=== PATIENT | female | born 1970 | race Caucasian/White ===

== ENCOUNTER 2020-09-09 13:06 | Emergency (ER) | payer BC, OTHER ==
[2020-09-09] MEDS ORDERED: Sodium Chloride 0.9% 2.5 ML Syringe FLUSH PRN (13:19)
[2020-09-09] MEDS ORDERED: Metoclopramide 10 MG/2 ML SDV IVPUSH ONE (13:19)
[2020-09-09] MEDS ORDERED: Sodium Chloride 0.9% 10 ML Syringe FLUSH PRN (13:19)
[2020-09-09] MEDS ORDERED: diphenhydrAMINE 50 MG/ML SDV IVPUSH ONE (13:20)
[2020-09-09] MEDS ORDERED: Ketorolac 30 MG/ML SDV IVPUSH ONE (13:20)
--- NOTE | 2020-09-09 13:24 | EDM.PDOC ---
ED HPI GENERAL MEDICAL PROBLEM - General Chief Complaint: Headache Stated Complaint: MIGRANES Time Seen by Provider: 09/09/20 13:08 - History of Present Illness INITIAL COMMENTS - FREE TEXT/NARRATIVE: Patient is a 49-year-old female presenting with 6 days of right-sided headache associated with nausea vomiting and photophobia. Patient reports that earlier today she was seen at [facility] and given a shot of medication that helped only a tiny bit. She reports constant unrelenting symptoms for 6 days no fevers no chills no other neurologic symptoms. Patient has a history of similar migraines many years ago but has not had a headache in quite some time. She denies ever having any imaging done of her head. Patient also reports for the last few days of pain on the plantar aspect of her right foot when she steps down in the morning she denies fall or injury. This pain is minimal compared to her head pain. Headache Pain Score (Numeric/FACES): 10 - Related Data Allergies Allergy/AdvReac Type Severity Reaction Status Date / Time No Known Allergies Allergy Verified 09/09/20 13:30 Home Meds: Home Meds . 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 Skin: No rash. Eyes: No vision problems. ENT: No sore throat. Neck: No neck stiffness. Respiratory: No shortness of breath. Cardiac: No chest pain. Gastrointestinal: Per HPI Urinary: No dysuria. Musculoskeletal: Per HPI Neurologic: Per HPI ED EXAM, GENERAL - Physical Exam Exam: See Below Free Text/Narrative:: General Appearance: Tearful but nontoxic Skin: No rash HEENT: Normocephalic/atraumatic, sclera anicteric, mucous membranes moist Neck: Normal range of motion Chest and Lungs: Bilateral breath sounds, clear to auscultation Cardiovascular: Regular rate and rhythm, no murmur Abdomen: Soft, non-tender Back: Normal Musculoskeletal: 2+ bilateral DP pulses no focal bony tenderness in the right foot or ankle she does have tenderness over the insertion of the plantar aspect of the foot over the calcaneus and along the instep no swelling no erythema no palpable deformity Neurologic: Awake, alert, no obvious deficits, moving all extremities Psychiatric: Appropriate, cooperative Course - Vital Signs Last Recorded V/S: Last Vital Signs Temp 97.6 F 09/09/20 13:30 Pulse 67 09/09/20 14:59 Resp 16 09/09/20 14:59 BP 124/69 09/09/20 14:59 Pulse Ox 98 09/09/20 14:59 - Orders/Labs/Meds Orders: Active Orders 24 hr Category Date Time Status Sodium Chloride 0.9% [Saline Flush] Med 09/09/20 13:19 Active 10 ml FLUSH ASDIRECTED PRN Sodium Chloride 0.9% [Saline Flush] Med 09/09/20 13:19 Active 2.5 ml FLUSH ASDIRECTED PRN Saline Lock Insert [OM.PC] Stat Oth 09/09/20 13:19 Ordered Medication Orders Sodium Chloride (Saline Flush) 10 ml FLUSH ASDIRECTED PRN PRN Reason: Keep Vein Open Last Admin: 09/09/20 13:28 Dose: 10 ml Documented by: [id number] Sodium Chloride (Saline Flush) 2.5 ml FLUSH ASDIRECTED PRN PRN Reason: Keep Vein Open Last Admin: 09/09/20 13:28 Dose: 2.5 ml Documented by: [email or web address] Meds: Medications Generic Name Dose Route Start Last Admin Trade Name Freq PRN Reason Stop Dose Admin Sodium Chloride 10 ml 09/09/20 13:19 09/09/20 13:28 Saline Flush FLUSH 10 ml ASDIRECTED PRN Administration Keep Vein Open Sodium Chloride 2.5 ml 09/09/20 13:19 09/09/20 13:28 Saline Flush FLUSH 2.5 ml ASDIRECTED PRN Administration Keep Vein Open Discontinued Medications Generic Name Dose Route Start Last Admin Trade Name Freq PRN Reason Stop Dose Admin Dexamethasone 10 mg 09/09/20 14:04 09/09/20 14:56 Decadron IVPUSH 09/09/20 14:05 10 mg ONETIME ONE Administration Diphenhydramine HCl 25 mg 09/09/20 13:20 09/09/20 13:27 Benadryl IVPUSH 09/09/20 13:21 25 mg ONETIME ONE Administration Haloperidol Lactate 5 mg 09/09/20 14:04 09/09/20 14:56 Haldol IM 09/09/20 14:05 2.5 mg ONETIME ONE Administration Ketorolac Tromethamine 15 mg 09/09/20 13:20 09/09/20 14:56 Toradol IVPUSH 09/09/20 13:21 Not Given ONETIME ONE Metoclopramide HCl 10 mg 09/09/20 13:19 09/09/20 13:27 Reglan IVPUSH 09/09/20 13:20 10 mg ONETIME ONE Administration Morphine Sulfate 4 mg 09/09/20 14:04 09/09/20 14:56 Morphine IVPUSH 09/09/20 14:05 4 mg ONETIME ONE Administration Departure - Departure Time of Disposition: 15:23 Disposition: Home, Self-Care 01 Condition: Good Clinical Impression: Migraine - Discharge Information *PRESCRIPTION DRUG MONITORING PROGRAM REVIEWED*: Not Applicable *COPY OF PRESCRIPTION DRUG MONITORING REPORT IN PATIENT KILLIAN: Not Applicable Instructions: Migraine Headache, [id number] Forms: ED Department Discharge Additional Instructions: I encourage you to follow-up with your primary care provider if you do not have a primary care provider you can be seen at the [facility]. Your headache should continue to improve over the next few days. If your headache suddenly worsens or you develop any other new symptoms that concern you please call your doctor right away or return to the ER. The following information is given to patients seen in the emergency department who are being discharged to home. This information is to outline your options for follow-up care. We provide all patients seen in our emergency department with a follow-up referral. The need for follow-up, as well as the timing and circumstances, are variable depending upon the specifics of your emergency department visit. If you don't have a primary care physician on staff, we will provide you with a referral. We always advise you to contact your personal physician following an emergency department visit to inform them of the circumstance of the visit and for follow-up with them and/or the need for any referrals to a consulting specialist. The emergency department will also refer you to a specialist when appropriate. This referral assures that you have the opportunity for follow-up care with a specialist. All of these measure are taken in an effort to provide you with optimal care, which includes your follow-up. Under all circumstances we always encourage you to contact your private physician who remains a resource for coordinating your care. When calling for follow-up care, please make the office aware that this follow-up is from your recent emergency room visit. If for any reason you are refused follow-up, please contact the [facility] Emergency Department at and asked to speak to the emergency department charge nurse. Sepsis Event Note (ED) - Focused Exam Vital Signs: Vital Signs Temp Pulse Resp BP Pulse Ox 09/09/20 14:59 67 16 124/69 98 09/09/20 14:07 69 17 146/85 H 98 09/09/20 13:30 97.6 F 79 24 H 210/97 H 98 - My Orders Last 24 Hours: My Active Orders 09/09/20 13:19 Sodium Chloride 0.9% [Saline Flush] 10 ml FLUSH ASDIRECTED PRN Sodium Chloride 0.9% [Saline Flush] 2.5 ml FLUSH ASDIRECTED PRN Saline Lock Insert [OM.PC] Stat - Assessment/Plan Last 24 Hours: My Active Orders 09/09/20 13:19 Sodium Chloride 0.9% [Saline Flush] 10 ml FLUSH ASDIRECTED PRN Sodium Chloride 0.9% [Saline Flush] 2.5 ml FLUSH ASDIRECTED PRN Saline Lock Insert [OM.PC] Stat Assessment:: 49-year-old female presenting with signs and symptoms most consistent with migraine headache. Given patient's lack of prior imaging CT scan of the brain is been ordered. No concern for meningitis or encephalitis given lack of fever neck stiffness and 6 days of symptoms. Headache is not thunderclap low concern for subarachnoid hemorrhage at this point. Reglan Benadryl ordered can add Toradol and CT negative. Regarding her right foot pain the exam and history particularly affected is worse in the morning when she steps is most consistent with plantar fasciitis. Anti-inflammatory should be adequate for this. We will have additional discussions after patient's headache has been addressed. 1415: Pt's CT is normal. Pt appears more comfortable but states that sx are unchanged. Will add morphine, haldol and decadron. 1520: Patient symptoms markedly improved with second round of medication patient comfortable going home return precaution discussed and understood.
--- NOTE | 2020-09-09 13:56 | CT ---
INDICATION: Right-sided headache for 6 days TECHNIQUE: Non-contrast CT of the head is submitted. No comparisons. FINDINGS: The ventricles, sulci and gyri are of normal size, shape and contour. Midline structures are centrally located. No convincing evidence of intra- or extra-axial fluid collections. IMPRESSION: 1. No radiographic evidence of acute intracranial abnormalities. Please note that all CT scans at this facility use dose modulation, iterative reconstruction, and/or weight-based dosing when appropriate to reduce radiation dose to as low as reasonably achievable. Dictated by Josh Moreno MD @ Sep 09 2020 1:55PM Signed by Dr. Josh Moreno @ Sep 09 2020 1:55PM
[2020-09-09] MEDS ORDERED: Haloperidol Lactate 5 MG/ML SDV IM ONE (14:04)
[2020-09-09] MEDS ORDERED: Dexamethasone 10 MG/ML SDV IVPUSH ONE (14:04)
[2020-09-09] MEDS ORDERED: Morphine 4 MG/ML Syringe IVPUSH ONE (14:04)
[2020-09-09 15:39] VITALS: BP 114/62; PULSE 86
== END 2020-09-09 15:39 | disposition home or self-care (01) ==
LOC: MW.ED 13:06
DX: G43.909 Migraine, unspecified, not intractable, without status migrainosus (principal); E66.9 Obesity, unspecified; Z68.42 Body mass index [BMI] 45.0-49.9, adult
CPT/HCPCS: 70450; 96374; 96375; 99283; J1100; J1200; J1630; J2270; J2765

== ENCOUNTER 2021-05-03 01:03 | Inpatient (IN) | payer OTHER ==
--- NOTE | 2021-05-03 01:20 | EDM.PDOC ---
ED HPI GENERAL MEDICAL PROBLEM - General Chief Complaint: Respiratory Problem Stated Complaint: COVID POSITIVE, SHORTNESS OF BREATH Time Seen by Provider: 05/03/21 01:04 - History of Present Illness INITIAL COMMENTS - FREE TEXT/NARRATIVE: History of present illness: [] This 50-year-old female has been having cough headache back pain muscle aches and fatigue since 6 days ago. On 29 April 2021 she tested positive for COVID-19. She is gradually gotten worse. She has no history of asthma or lung disease. She is not diabetic. Her symptoms are moderately severe today and associated with low blood oxygen. On home pulse oximetry she measures 79. Review of systems: As per history of present illness and below otherwise all systems reviewed and negative. Past medical history: As per history of present illness and as reviewed below otherwise noncontributory. Surgical history: As per history of present illness and as reviewed below otherwise noncontributory. Social history: No reported history of drug or alcohol abuse. Family history: As per history of present illness and as reviewed below otherwise noncontributory. Physical exam: Constitutional - well developed, well-nourished and in no acute distress HEENT - normocephalic, no evidence of trauma - external nose and mouth normal - no mass in neck and no JVD - mucosae moist EYES - full EOM, PERRL, no icterus - no evidence of inflammation, injection, or drainage Respiratory -mild respiratory distress, equal bilateral expansion, lungs markedly diminished lung sounds with prolonged expiratory phase of respiration. Cardiovascular - Regular Rhythm with S1 and S2 appreciated and no murmur, gallop or rub. GI - abdomen soft without distension or organomegaly - normal bowel sounds - no guard or rebound Musculoskeletal no gross deformity of long bones or joints - no tenderness, swelling or edema Neurologic - Alert and oriented times four - CN II-XII grossly intact - motor sensory and coordination symmetrically normal Psychiatric - appropriate mood and affect with normal thought content Hematologic - No petechiae or purpura - mucosa appropriate color and sclera not pale - normal nail bed color and refill Integument - no rash or evidence of trauma - normal turgor Diagnostics: [] Therapeutics: [] Impression: [] Plan: [] Definitive disposition and diagnosis as appropriate pending reevaluation and review of above. Bilateral Chest Pain Score (Numeric/FACES): 7 - Related Data Allergies Allergy/AdvReac Type Severity Reaction Status Date / Time No Known Allergies Allergy Verified 09/09/20 13:30 Home Meds: Home Meds . 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 ED EXAM, GENERAL - Physical Exam Exam: See Below Free Text/Narrative:: My physical exam is in the HPI #1 Interpretation EKG Interpretation Comments: EKG-date 05/03/2021-time 09 28-rhythm sinus-rate 79-PA 141-QT duration 432-[place] XVII-QRS late transition R wave in the precordium-ST and T normal-essentially normal EKG-no prior for comparison Course - Vital Signs Text/Narrative:: Patient is not in severe respiratory distress but much more comfortable and sats above 90 when she is on 2 L of nasal oxygen. Infiltrates quite diffuse and impressive on the chest x-ray. Discussed with Dr. Mukherjee and admitted for further care. Last Recorded V/S: Last Vital Signs Temp 36.4 C 05/03/21 01:19 Pulse 82 05/03/21 01:19 Resp 22 H 05/03/21 01:19 BP 113/72 05/03/21 01:19 Pulse Ox 89 L 05/03/21 01:19 - Orders/Labs/Meds Orders: Active Orders 24 hr Category Date Time Status Admission Status [Patient Status] [ADT] Stat ADT 05/03/21 02:27 Ordered RT Post Treatment Assessment [RC] Click to Edit Care 05/03/21 01:37 Active RT Pre-Treatment Assessment [RC] Click to Edit Care 05/03/21 01:37 Active BILIRUBIN DIRECT [CHEM] Stat Lab 05/03/21 02:26 Ordered UA W/MARCOS RFLX IF INDICATED [URIN] Stat Lab 05/03/21 01:36 Ordered Ibuprofen [Motrin] Med 05/03/21 02:28 Once 400 mg PO ONETIME ONE Remdesivir 200 mg Med 05/03/21 02:26 Ordered Sodium Chloride 0.9% [Normal Saline] 250 ml IV ONETIME Sodium Chloride 0.9% [Saline Flush] Med 05/03/21 01:36 Active 10 ml FLUSH ASDIRECTED PRN Sodium Chloride 0.9% [Saline Flush] Med 05/03/21 01:36 Active 2.5 ml FLUSH ASDIRECTED PRN dexAMETHasone [Decadron] Med 05/03/21 02:27 Once 10 mg IVPUSH ONETIME ONE Saline Lock Insert [OM.PC] Stat Oth 05/03/21 01:36 Ordered Medication Orders Dexamethasone (Dexamethasone 10 Mg/Ml Sdv) 10 mg IVPUSH ONETIME ONE Stop: 05/03/21 02:28 Remdesivir 200 mg/ Sodium (Chloride) 250 mls @ 250 mls/hr IV ONETIME ONE Stop: 05/03/21 02:27 Sodium Chloride (Sodium Chloride 0.9% 10 Ml Syringe) 10 ml FLUSH ASDIRECTED PRN PRN Reason: Keep Vein Open Last Admin: 05/03/21 02:12 Dose: 10 ml Documented by: SACHIN Sodium Chloride (Sodium Chloride 0.9% 2.5 Ml Syringe) 2.5 ml FLUSH ASDIRECTED PRN PRN Reason: Keep Vein Open Last Admin: 05/03/21 02:12 Dose: 2.5 ml Documented by: SACHIN Labs: Laboratory Tests 05/03/21 05/03/21 Range/Units 01:45 01:45 WBC 3.93 L (4.0-11.0) K/uL RBC 4.93 (4.30-5.90) M/uL Hgb 15.0 (12.0-16.0) g/dL Hct 42.7 (36.0-46.0) % MCV 86.6 (80.0-98.0) fL MCH 30.4 (27.0-32.0) pg MCHC 35.1 (31.0-37.0) g/dL RDW Std Deviation 44.4 (28.0-62.0) fl RDW Coeff of Yaneth 14 (11.0-15.0) % Plt Count 147 L (150-400) K/uL MPV 11.10 (7.40-12.00) fL Neut % (Auto) 55.9 (48.0-80.0) % Lymph % (Auto) 34.6 (16.0-40.0) % O'Brien % (Auto) 9.2 (0.0-15.0) % Eos % (Auto) 0.0 (0.0-7.0) % Baso % (Auto) 0.3 (0.0-1.5) % Neut # (Auto) 2.2 (1.4-5.7) K/uL Lymph # (Auto) 1.4 (0.6-2.4) K/uL O'Brien # (Auto) 0.4 (0.0-0.8) K/uL Eos # (Auto) 0.0 (0.0-0.7) K/uL Baso # (Auto) 0.0 (0.0-0.1) K/uL Nucleated RBC % 0.0 /100WBC Nucleated RBCs # 0 K/uL Sodium 137 (136-145) mmol/L Potassium 4.0 (3.5-5.1) mmol/L Chloride 102 (98-107) mmol/L Carbon Dioxide 25.9 (21.0-32.0) mmol/L BUN 13 (7.0-18.0) mg/dL Creatinine 0.9 (0.6-1.0) mg/dL Est Cr Clr Drug Dosing 63.14 mL/min Estimated GFR (MDRD) > 60.0 ml/min Glucose 118 H (74-106) mg/dL Calcium 8.5 (8.5-10.1) mg/dL Total Bilirubin 0.3 (0.2-1.0) mg/dL AST 40 H (15-37) IU/L ALT 31 (14-63) IU/L Alkaline Phosphatase 145 H (46-116) U/L Troponin I < 0.050 (0.000-0.056) ng/mL Total Protein 7.1 (6.4-8.2) g/dL Albumin 3.1 L (3.4-5.0) g/dL Globulin 4.0 (2.6-4.0) g/dL Albumin/Globulin Ratio 0.8 L (0.9-1.6) Meds: Medications Generic Name Dose Route Start Last Admin Trade Name Freq PRN Reason Stop Dose Admin Dexamethasone 10 mg 05/03/21 02:27 Dexamethasone 10 Mg/Ml Sdv IVPUSH 05/03/21 02:28 ONETIME ONE Remdesivir 200 mg/ Sodium 250 mls @ 250 mls/hr 05/03/21 02:26 Chloride IV 05/03/21 02:27 ONETIME ONE Sodium Chloride 10 ml 05/03/21 01:36 05/03/21 02:12 Sodium Chloride 0.9% 10 Ml Syringe FLUSH 10 ml ASDIRECTED PRN Administration Keep Vein Open Sodium Chloride 2.5 ml 05/03/21 01:36 05/03/21 02:12 Sodium Chloride 0.9% 2.5 Ml Syringe FLUSH 2.5 ml ASDIRECTED PRN Administration Keep Vein Open Discontinued Medications Generic Name Dose Route Start Last Admin Trade Name Freq PRN Reason Stop Dose Admin Albuterol 8 gm 05/03/21 01:37 05/03/21 02:06 Albuterol 8 Gm Inhaler INH 05/03/21 01:38 90 mcg ONETIME STA Administration Benzonatate 200 mg 05/03/21 01:37 05/03/21 02:11 Benzonatate 100 Mg Cap PO 05/03/21 01:38 200 mg ONETIME ONE Administration Departure - Departure Time of Disposition: 02:29 Disposition: Admitted As Inpatient 64 Condition: Good Clinical Impression: Pneumonia due to COVID-19 virus, Hypoxia - Discharge Information Referrals: PCP,None [Primary Care Provider] - Forms: ED Department Discharge Sepsis Event Note (ED) - Focused Exam Vital Signs: Vital Signs Temp Pulse Resp BP Pulse Ox 05/03/21 01:19 36.4 C 82 22 H 113/72 89 L - My Orders Last 24 Hours: My Active Orders 05/03/21 01:36 UA W/MARCOS RFLX IF INDICATED [URIN] Stat Sodium Chloride 0.9% [Saline Flush] 10 ml FLUSH ASDIRECTED PRN Sodium Chloride 0.9% [Saline Flush] 2.5 ml FLUSH ASDIRECTED PRN Saline Lock Insert [OM.PC] Stat 05/03/21 01:37 RT Post Treatment Assessment [RC] Click to Edit RT Pre-Treatment Assessment [RC] Click to Edit 05/03/21 02:26 BILIRUBIN DIRECT [CHEM] Stat Remdesivir 200 mg Sodium Chloride 0.9% [Normal Saline] 250 ml IV ONETIME 05/03/21 02:27 Admission Status [Patient Status] [ADT] Stat dexAMETHasone [Decadron] 10 mg IVPUSH ONETIME ONE 05/03/21 02:28 Ibuprofen [Motrin] 400 mg PO ONETIME ONE - Assessment/Plan Last 24 Hours: My Active Orders 05/03/21 01:36 UA W/MARCOS RFLX IF INDICATED [URIN] Stat Sodium Chloride 0.9% [Saline Flush] 10 ml FLUSH ASDIRECTED PRN Sodium Chloride 0.9% [Saline Flush] 2.5 ml FLUSH ASDIRECTED PRN Saline Lock Insert [OM.PC] Stat 05/03/21 01:37 RT Post Treatment Assessment [RC] Click to Edit RT Pre-Treatment Assessment [RC] Click to Edit 05/03/21 02:26 BILIRUBIN DIRECT [CHEM] Stat Remdesivir 200 mg Sodium Chloride 0.9% [Normal Saline] 250 ml IV ONETIME 05/03/21 02:27 Admission Status [Patient Status] [ADT] Stat dexAMETHasone [Decadron] 10 mg IVPUSH ONETIME ONE 05/03/21 02:28 Ibuprofen [Motrin] 400 mg PO ONETIME ONE
[2021-05-03] MEDS ORDERED: Sodium Chloride 0.9% 10 ML Syringe FLUSH PRN (01:36)
[2021-05-03] MEDS ORDERED: Sodium Chloride 0.9% 2.5 ML Syringe FLUSH PRN ×2 (01:36→08:22)
[2021-05-03] MEDS ORDERED: Albuterol 8 GM Inhaler INH STA (01:37)
[2021-05-03] MEDS ORDERED: Benzonatate 100 MG Cap PO ONE (01:37)
--- NOTE | 2021-05-03 02:07 | CR ---
INDICATION: Cough, shortness of breath TECHNIQUE: Chest 1 view. COMPARISON: None FINDINGS: The heart is normal in size. There are patchy bilateral airspace opacities. Negative for pneumothorax. The bones are unremarkable. IMPRESSION: Patchy bilateral airspace opacities, findings which could be seen with COVID-19 pneumonia, multifocal pneumonia or pulmonary edema. Dictated by Ghazal Nelson MD @ 05/03/2021 2:06:[address] Ghazal Nelson @ May 03 2021 2:06AM
[2021-05-03 02:19] LABS: BLOOD UREA NITROGEN,BUN 13 mg/dL (7.0-18.0); CARBON DIOXIDE,CO2 25.9 mmol/L (21.0-32.0); CHLORIDE,CL 102 mmol/L (98-107); GLUCOSE RANDOM 118 mg/dL (74-106); SODIUM,NA 137 mmol/L (136-145)
[2021-05-03] MEDS ORDERED: REMDESIVIR 200 MG in Sodium Chloride 0.9% 250 ML IV ONE (02:26)
[2021-05-03] MEDS ORDERED: Dexamethasone 10 MG/ML SDV IVPUSH ONE (02:27)
[2021-05-03] MEDS ORDERED: Ibuprofen 400 MG Tab PO ONE (02:28)
[2021-05-03] MEDS: Acetaminophen 325 MG Tab PO PRN (06:43)
[2021-05-03 06:57] LABS: BLOOD UREA NITROGEN,BUN 10 mg/dL (7.0-18.0); CARBON DIOXIDE,CO2 25.7 mmol/L (21.0-32.0); CHLORIDE,CL 103 mmol/L (98-107); GLUCOSE RANDOM 133 mg/dL (74-106); POTASSIUM,K 4.9 mmol/L (3.5-5.1); SODIUM,NA 137 mmol/L (136-145)
--- NOTE | 2021-05-03 08:19 | PCM.HP.2 ---
H&P History of Present Illness - General Date of Service: 05/03/21 Admit Problem/Dx: Admission Diagnosis/Problem Admission Diagnosis/Problem Pneumonia Source of Information: Patient History Limitations: Reports: No Limitations - History of Present Illness Initial Comments - Free Text/Narative: This 50-year-old female with past medical history of obesity and migraine presented to the ER last night with cough, headache, back pain and muscle aches. She reports these have been going on for approximately 6 days. On 04/29/2021 patient was tested positive for COVID-19. She reports over this last few days she is continuously gradually gotten worse she reports she is feeling quite ill yesterday which prompted her to come to the ER along with low oxygen level noted at home. Home pulse oximetry she reported to 79% on room air. She denies any chest pain but reports shortness of breath especially with ambulation. Reports generalized malaise and body aches. She reports mild dry scratchy throat she reports mild sinus congestion and all over headache, with no blurred vision or double vision. No neck pain. She denies any abdominal pain but does report mild diarrhea. Reports decreased appetite and oral intake. She denies having Covid vaccination. Reports she was recently at the [place] [employer] [facility] which she feels like this is where she contracted COVID-19. She denies any regular tobacco use but smokes cigarettes socially 1 or 2 every couple months. Reports social alcohol use and no recreational drug use. In the ER mild leukopenia noted 3.93. Hemoglobin 15.0 hematocrit 42.7 platelet count 147,000. BMP otherwise normal limits. Glucose 118 mildly elevated. AST 40 ALT 31 alk phos 145. Troponin negative. UA negative. Chest x-ray in the ER revealed patchy bilateral airspace opacities multifocal pneumonia or pulmonary edema or COVID-19 pneumonia. In the ER she was noted to be hypoxic on room air with mild tachypnea. Afebrile heart rate 82 blood pressure 113/72. She was placed on 2 L of oxygen and oxygen increased to 94%. In the ER she was treated with 200 mg of remdesivir ibuprofen 10 mg IV dexamethasone along with Tessalon Perles and albuterol inhaler. She will be admitted inpatient for acute hypoxic respiratory failure and COVID-19 pneumonia. Bilateral Chest Pain Score (Numeric/FACES): 7 Back Pain Score (Numeric/FACES): 4 - Related Data Allergies/Adverse Reactions: Allergies Allergy/AdvReac Type Severity Reaction Status Date / Time No Known Allergies Allergy Verified 05/03/21 03:32 Home Medications: Home Meds . [No Known Home Meds] 09/26/16 [History] Past Medical History HEENT History: Reports: None Cardiovascular History: Reports: None. Denies: Afib, Blood Clots/VTE/DVT, CAD, High Cholesterol, Hypertension Respiratory History: Reports: None. Denies: Asthma, COPD, SOB Gastrointestinal History: Reports: None. Denies: GERD, GI Bleed, Irritable Bowel Syndrome Genitourinary History: Reports: None. Denies: Acute Renal Failure [employer] History: Reports: Neurological History: Reports: Migraines Endocrine/Metabolic History: Reports: Obesity/BMI 30+. Denies: Diabetes, Type II Immunologic History: Reports: None - Infectious Disease History Infectious Disease History: Reports: None - Past Surgical History Head Surgeries/Procedures: Reports: None HEENT Surgical History: Reports: Oral Surgery Female Surgical History: Reports: Breast Biopsy Social & Family History - Family History Family Medical History: No Pertinent Family History - Tobacco Use Tobacco Use Status *Q: Light Tobacco User (Uses only socially) Second Hand Smoke Exposure: No - Caffeine Use Caffeine Use: Reports: None - Alcohol Use Alcohol Use Frequency: Rarely, Socially - Recreational Drug Use Recreational Drug Use: No H&P Review of Systems - Review of Systems: Review Of Systems: See Below General: Reports: Fever, Chills, Malaise, Fatigue HEENT: Reports: Headaches, Sinus Congestion, Sore Throat Pulmonary: Reports: Shortness of Breath, Cough. Denies: Sputum, Hemoptysis Cardiovascular: Reports: Dyspnea on Exertion. Denies: Lightheadedness Gastrointestinal: Reports: No Symptoms, Diarrhea. Denies: Abdominal Pain, Black Stool, Bloody Stool, Nausea, Vomiting Genitourinary: Reports: No Symptoms. Denies: Dysuria, Frequency, Burning Musculoskeletal: Reports: No Symptoms Skin: Reports: No Symptoms Psychiatric: Reports: No Symptoms Neurological: Reports: No Symptoms Hematologic/Lymphatic: Reports: No Symptoms Immunologic: Reports: No Symptoms Exam - Exam Exam: See Below - Vital Signs Vital Signs: Last Vital Signs Temp 98.2 F 05/03/21 03:41 Pulse 80 05/03/21 03:41 Resp 22 H 05/03/21 03:41 BP 114/70 05/03/21 03:41 Pulse Ox 94 L 05/03/21 03:41 Weight: 93.395 kg - Exam Quality Assessment: Supplemental Oxygen, DVT Prophylaxis General: Alert, Oriented, Cooperative HEENT: Conjunctiva Clear, Posterior Pharynx Clear. No: Mucosa Moist & [place] (Dry) Lungs: Decreased Breath Sounds, Crackles (Fine bibasilar crackles). No: Normal Respiratory Effort (Mild dyspnea noted with speech) Cardiovascular: Regular Rate, Regular Rhythm, Normal S1, Normal S2. No: Irregular Rhythm, Systolic Murmur GI/Abdominal Exam: Normal Bowel Sounds, Soft, Non-Tender Back Exam: Normal Inspection, Full Range of Motion Extremities: Normal Inspection, Normal Range of Motion, Non-Tender, No Pedal Edema Skin: Warm, Dry, Intact Neuro Extensive - Mental Status: Alert, Oriented x3, Normal Mood/Affect Psychiatric: Alert, Normal Affect, Normal Mood - Patient Data Lab Results Last 24 hrs: Laboratory Results - last 24 hr 05/03/21 05/03/21 05/03/21 Range/Units 01:45 01:45 01:45 WBC 3.93 L (4.0-11.0) K/uL RBC 4.93 (4.30-5.90) M/uL Hgb 15.0 (12.0-16.0) g/dL Hct 42.7 (36.0-46.0) % MCV 86.6 (80.0-98.0) fL MCH 30.4 (27.0-32.0) pg MCHC 35.1 (31.0-37.0) g/dL RDW Std Deviation 44.4 (28.0-62.0) fl RDW Coeff of Yaneth 14 (11.0-15.0) % Plt Count 147 L (150-400) K/uL MPV 11.10 (7.40-12.00) fL Neut % (Auto) 55.9 (48.0-80.0) % Lymph % (Auto) 34.6 (16.0-40.0) % [place] % (Auto) 9.2 (0.0-15.0) % Eos % (Auto) 0.0 (0.0-7.0) % Baso % (Auto) 0.3 (0.0-1.5) % Neut # (Auto) 2.2 (1.4-5.7) K/uL Lymph # (Auto) 1.4 (0.6-2.4) K/uL [place] # (Auto) 0.4 (0.0-0.8) K/uL Eos # (Auto) 0.0 (0.0-0.7) K/uL Baso # (Auto) 0.0 (0.0-0.1) K/uL Nucleated RBC % 0.0 /100WBC Nucleated RBCs # 0 K/uL Sodium 137 (136-145) mmol/L Potassium 4.0 (3.5-5.1) mmol/L Chloride 102 (98-107) mmol/L Carbon Dioxide 25.9 (21.0-32.0) mmol/L BUN 13 (7.0-18.0) mg/dL Creatinine 0.9 (0.6-1.0) mg/dL Est Cr Clr Drug Dosing 63.14 mL/min Estimated GFR (MDRD) > 60.0 ml/min Glucose 118 H (74-106) mg/dL Calcium 8.5 (8.5-10.1) mg/dL Total Bilirubin 0.3 (0.2-1.0) mg/dL Direct Bilirubin 0.10 (0.0-0.5) mg/dL AST 40 H (15-37) IU/L ALT 31 (14-63) IU/L Alkaline Phosphatase 145 H (46-116) U/L Troponin I < 0.050 (0.000-0.056) ng/mL Total Protein 7.1 (6.4-8.2) g/dL Albumin 3.1 L (3.4-5.0) g/dL Globulin 4.0 (2.6-4.0) g/dL Albumin/Globulin Ratio 0.8 L (0.9-1.6) Urine Color Urine Appearance Urine pH (5.0-8.0) Ur Specific [place] (1.001-1.035) Urine Protein (NEGATIVE) mg/dL Urine Glucose (UA) (NEGATIVE) mg/dL Urine Ketones (NEGATIVE) mg/dL Urine Occult Blood (NEGATIVE) Urine Nitrite (NEGATIVE) Urine Bilirubin (NEGATIVE) Urine Urobilinogen (<2.0) EU/dL Ur Leukocyte Esterase (NEGATIVE) 08/25/21 08/25/21 08/25/21 Range/Units 05:25 05:25 06:40 WBC 4.94 (4.0-11.0) K/uL RBC 4.98 (4.30-5.90) M/uL Hgb 14.7 (12.0-16.0) g/dL Hct 43.4 (36.0-46.0) % MCV 87.1 (80.0-98.0) fL MCH 29.5 (27.0-32.0) pg MCHC 33.9 (31.0-37.0) g/dL RDW Std Deviation 46.1 (28.0-62.0) fl RDW Coeff of Yaneth 14 (11.0-15.0) % Plt Count 141 L (150-400) K/uL MPV 11.60 (7.40-12.00) fL Neut % (Auto) 76.7 (48.0-80.0) % Lymph % (Auto) 18.2 (16.0-40.0) % [place] % (Auto) 4.9 (0.0-15.0) % Eos % (Auto) 0.0 (0.0-7.0) % Baso % (Auto) 0.2 (0.0-1.5) % Neut # (Auto) 3.8 (1.4-5.7) K/uL Lymph # (Auto) 0.9 (0.6-2.4) K/uL [place] # (Auto) 0.2 (0.0-0.8) K/uL Eos # (Auto) 0.0 (0.0-0.7) K/uL Baso # (Auto) 0.0 (0.0-0.1) K/uL Nucleated RBC % 0.0 /100WBC Nucleated RBCs # 0 K/uL Sodium 137 (136-145) mmol/L Potassium 4.9 (3.5-5.1) mmol/L Chloride 103 (98-107) mmol/L Carbon Dioxide 25.7 (21.0-32.0) mmol/L BUN 10 (7.0-18.0) mg/dL Creatinine 0.9 (0.6-1.0) mg/dL Est Cr Clr Drug Dosing 63.14 mL/min Estimated GFR (MDRD) > 60.0 ml/min Glucose 133 H (74-106) mg/dL Calcium 8.1 L (8.5-10.1) mg/dL Total Bilirubin 0.3 (0.2-1.0) mg/dL Direct Bilirubin (0.0-0.5) mg/dL AST 43 H (15-37) IU/L ALT 36 (14-63) IU/L Alkaline Phosphatase 147 H (46-116) U/L Troponin I (0.000-0.056) ng/mL Total Protein 6.9 (6.4-8.2) g/dL Albumin 3.1 L (3.4-5.0) g/dL Globulin 3.8 (2.6-4.0) g/dL Albumin/Globulin Ratio 0.8 L (0.9-1.6) Urine Color YELLOW Urine Appearance CLEAR Urine pH 6.0 (5.0-8.0) Ur Specific [place] 1.010 (1.001-1.035) Urine Protein NEGATIVE (NEGATIVE) mg/dL Urine Glucose (UA) NEGATIVE (NEGATIVE) mg/dL Urine Ketones TRACE H (NEGATIVE) mg/dL Urine Occult Blood NEGATIVE (NEGATIVE) Urine Nitrite NEGATIVE (NEGATIVE) Urine Bilirubin NEGATIVE (NEGATIVE) Urine Urobilinogen 0.2 (<2.0) EU/dL Ur Leukocyte Esterase NEGATIVE (NEGATIVE) Result Diagrams: 05/03/21 05:25 05/03/21 05:25 Sepsis Event Note - Evaluation Sepsis Screening Result: Possible Sepsis Risk - Focused Exam Vital Signs: Vital Signs Temp Pulse Resp BP Pulse Ox 05/03/21 03:41 98.2 F 80 22 H 114/70 94 L 05/03/21 03:02 92 20 108/66 91 L 05/03/21 01:19 97.6 F 82 22 H 113/72 89 L - Problem List (1) Acute respiratory failure with hypoxia SNOMED Code(s): 06225001, 476680196 ICD Code: J96.01 - ACUTE RESPIRATORY FAILURE WITH HYPOXIA Status: Acute Current Visit: Yes (2) COVID-19 SNOMED Code(s): 980710812 ICD Code: U07.1 - COVID-19 Status: Acute Current Visit: Yes (3) Viral pneumonia SNOMED Code(s): 99890560 ICD Code: J12.9 - VIRAL PNEUMONIA, UNSPECIFIED Status: Acute Current Visit: Yes (4) Obesity SNOMED Code(s): 041167934, 068591460 ICD Code: E66.9 - OBESITY, UNSPECIFIED Status: Chronic Current Visit: Yes (5) Migraine SNOMED Code(s): 83227808 ICD Code: G43.909 - MIGRAINE, UNSP, NOT INTRACTABLE, WITHOUT STATUS MIGRAINOSUS Status: Chronic Current Visit: No Problem List Initiated/Reviewed/Updated: Yes Orders Last 24hrs: Active Orders 24 hr Category Date Time Status Admission Status [Patient Status] [ADT] Stat ADT 05/03/21 02:27 Active RT Post Treatment Assessment [RC] Click to Edit Care 05/03/21 01:37 Active RT Pre-Treatment Assessment [RC] Click to Edit Care 05/03/21 01:37 Active Regular Diet [DIET] Diet 05/03/21 Breakfast Active Acetaminophen [TylenoL] Med 05/03/21 04:37 Active 650 mg PO Q6H PRN Benzonatate [Tessalon Perles] Med 05/03/21 04:37 Active 100 mg PO Q6H PRN Remdesivir 100 mg Med 05/04/21 03:00 Active Sodium Chloride 0.9% [Normal Saline] 100 ml IV Q24H Sodium Chloride 0.9% [Saline Flush] Med 05/03/21 01:36 Active 10 ml FLUSH ASDIRECTED PRN Sodium Chloride 0.9% [Saline Flush] Med 05/03/21 01:36 Active 2.5 ml FLUSH ASDIRECTED PRN dexAMETHasone Med 05/03/21 23:00 Active 6 mg PO Q24H Saline Lock Insert [OM.PC] Stat Oth 05/03/21 01:36 Ordered Medication Orders Acetaminophen (Acetaminophen 325 Mg Tab) 650 mg PO Q6H PRN PRN Reason: Pain/Fever Last Admin: 05/03/21 06:43 Dose: 650 mg Documented by: SEMICHR Benzonatate (Benzonatate 100 Mg Cap) 100 mg PO Q6H PRN PRN Reason: Cough Dexamethasone (Dexamethasone 4 Mg Tab) 6 mg PO Q24H JAYY Remdesivir 100 mg/ Sodium (Chloride) 100 mls @ 100 mls/hr IV Q24H JAYY Stop: 05/07/21 03:59 Sodium Chloride (Sodium Chloride 0.9% 10 Ml Syringe) 10 ml FLUSH ASDIRECTED PRN PRN Reason: Keep Vein Open Last Admin: 05/03/21 02:12 Dose: 10 ml Documented by: SACHIN Sodium Chloride (Sodium Chloride 0.9% 2.5 Ml Syringe) 2.5 ml FLUSH ASDIRECTED PRN PRN Reason: Keep Vein Open Last Admin: 05/03/21 02:12 Dose: 2.5 ml Documented by: SACHIN Assessment/Plan Comment:: This 50-year-old female admitted with acute hypoxic respiratory failure COVID- 19, viral pneumonia 1. Acute hypoxic respiratory failure, COVID-19 and viral pneumonia -Continue remdesivir 100 mg IV daily x4 days -Continue dexamethasone 6 mg p.o. daily until discharge or 10 days -Combivent inhaler every 4 hours -Tessalon Perles or Robitussin with codeine for cough as needed -Encourage I-S, Acapella and proning -Lovenox for DVT prophylaxis -Oxygen to keep sats greater 92% wean as possible -Monitor LFTs while on intensive care therapy VTE prophylaxis: Lovenox GI prophylaxis: Protonix while on high-dose steroids CODE STATUS: Dispo 2 to 3 days pending improvement. - Mortality Measure Prognosis:: Good
[2021-05-03] MEDS ORDERED: Ondansetron 4 MG/2 ML SDV IVPUSH PRN (08:22)
[2021-05-03] MEDS ORDERED: Pantoprazole 40 MG in Sodium Chloride 0.9% 10 ML IV ONE (08:22)
[2021-05-03] MEDS: Albuterol/Ipratropium 4 GM Inhalation Spray INH SCH ×4 (09:36→23:07)
[2021-05-03] MEDS: Codeine/guaiFENesin 10-100 MG/5 ML Syrup 5 ML Cup PO PRN ×2 (12:40→23:09)
[2021-05-03] MEDS: Ibuprofen 400 MG Tab PO PRN ×2 (12:40→18:53)
[2021-05-03] MEDS: Enoxaparin 40 MG/0.4 ML Syringe SUBCUT SCH (12:41)
[2021-05-03] MEDS: Benzonatate 100 MG Cap PO PRN (16:28)
[2021-05-03] MEDS: Dexamethasone 4 MG Tab PO SCH (23:08)
[2021-05-04] MEDS: Acetaminophen 325 MG Tab PO PRN ×2 (01:31→22:00)
[2021-05-04] MEDS: Benzonatate 100 MG Cap PO PRN (01:31)
[2021-05-04] MEDS: REMDESIVIR 100 MG in Sodium Chloride 0.9% 100 ML IV SCH (02:04)
[2021-05-04] MEDS: Albuterol/Ipratropium 4 GM Inhalation Spray INH SCH ×6 (02:07→21:59)
[2021-05-04] MEDS: Pantoprazole 40 MG Tab.CR PO SCH (06:57)
[2021-05-04 07:06] LABS: BLOOD UREA NITROGEN,BUN 16 mg/dL (7.0-18.0); CARBON DIOXIDE,CO2 23.8 mmol/L (21.0-32.0); CHLORIDE,CL 102 mmol/L (98-107); GLUCOSE RANDOM 168 mg/dL (74-106); POTASSIUM,K 4.2 mmol/L (3.5-5.1); SODIUM,NA 136 mmol/L (136-145)
--- NOTE | 2021-05-04 08:01 | PCM.PN ---
- General Info Date of Service: 05/04/21 Admission Dx/Problem (Free Text): Admission Diagnosis/Problem Admission Diagnosis/Problem Pneumonia Subjective Update: Feeling improved this morning. Reports had significant anxiety and shortness of breath over night. She was found to hypoxic and needs increased she is currently on high flow nasal cannula. Denies any chest pain but does report continued shortness of Functional Status: Reports: Pain Controlled, Tolerating Diet, Ambulating, Urinating - Review of Systems General: Reports: Weakness, Fatigue, Malaise HEENT: Reports: Headaches, Sinus Congestion, Sore Throat Pulmonary: Reports: Shortness of Breath, Cough, Sputum Cardiovascular: Reports: Dyspnea on Exertion. Denies: Chest Pain Gastrointestinal: Reports: Decreased Appetite. Denies: Abdominal Pain, Nausea, Vomiting Genitourinary: Reports: No Symptoms. Denies: Dysuria, Frequency, Burning Musculoskeletal: Reports: No Symptoms Skin: Reports: No Symptoms Neurological: Reports: No Symptoms Psychiatric: Reports: No Symptoms - Patient Data Vitals - Most Recent: Last Vital Signs Temp 97.0 F 05/04/21 03:33 Pulse 72 05/04/21 03:33 Resp 18 05/04/21 03:33 BP 121/77 05/04/21 03:33 Pulse Ox 93 L 05/04/21 03:33 Weight - Most Recent: 93.395 kg I&O - Last 24 Hours: Intake & Output 05/03/21 05/04/21 05/04/21 22:59 06:59 14:59 Intake Total 1080 Output Total 500 Balance 580 Lab Results Last 24 Hours: Laboratory Results - last 24 hr 05/04/21 05/04/21 Range/Units 06:11 06:11 WBC 3.86 L (4.0-11.0) K/uL RBC 4.81 (4.30-5.90) M/uL Hgb 14.2 (12.0-16.0) g/dL Hct 41.5 (36.0-46.0) % MCV 86.3 (80.0-98.0) fL MCH 29.5 (27.0-32.0) pg MCHC 34.2 (31.0-37.0) g/dL RDW Std Deviation 44.8 (28.0-62.0) fl RDW Coeff of Yaneth 14 (11.0-15.0) % Plt Count 189 (150-400) K/uL MPV 11.10 (7.40-12.00) fL Neut % (Auto) 56.7 (48.0-80.0) % Lymph % (Auto) 32.9 (16.0-40.0) % [place] % (Auto) 10.4 (0.0-15.0) % Eos % (Auto) 0.0 (0.0-7.0) % Baso % (Auto) 0.0 (0.0-1.5) % Neut # (Auto) 2.2 (1.4-5.7) K/uL Lymph # (Auto) 1.3 (0.6-2.4) K/uL [place] # (Auto) 0.4 (0.0-0.8) K/uL Eos # (Auto) 0.0 (0.0-0.7) K/uL Baso # (Auto) 0.0 (0.0-0.1) K/uL Nucleated RBC % 0.0 /100WBC Nucleated RBCs # 0 K/uL Sodium 136 (136-145) mmol/L Potassium 4.2 (3.5-5.1) mmol/L Chloride 102 (98-107) mmol/L Carbon Dioxide 23.8 (21.0-32.0) mmol/L BUN 16 (7.0-18.0) mg/dL Creatinine 0.8 (0.6-1.0) mg/dL Est Cr Clr Drug Dosing 71.03 mL/min Estimated GFR (MDRD) > 60.0 ml/min Glucose 168 H (74-106) mg/dL Calcium 8.1 L (8.5-10.1) mg/dL Total Bilirubin 0.3 (0.2-1.0) mg/dL AST 56 H (15-37) IU/L ALT 55 (14-63) IU/L Alkaline Phosphatase 134 H (46-116) U/L Total Protein 6.8 (6.4-8.2) g/dL Albumin 3.0 L (3.4-5.0) g/dL Globulin 3.8 (2.6-4.0) g/dL Albumin/Globulin Ratio 0.8 L (0.9-1.6) Med Orders - Current: Current Medications Acetaminophen (Acetaminophen 325 Mg Tab) 650 mg PO Q6H PRN PRN Reason: Pain/Fever Last Admin: 05/04/21 01:31 Dose: 650 mg Documented by: Albuterol/Ipratropium (Albuterol/Ipratropium 4 Gm Inhalation [place]) 0 gm INH Q4HRRT [facility] Last Admin: 05/04/21 06:00 Dose: 2 puff Documented by: Benzonatate (Benzonatate 100 Mg Cap) 100 mg PO Q6H PRN PRN Reason: Cough Last Admin: 05/04/21 01:31 Dose: 100 mg Documented by: Dexamethasone (Dexamethasone 4 Mg Tab) 6 mg PO Q24H [facility] Last Admin: 05/03/21 23:08 Dose: 6 mg Documented by: Docusate Sodium (Docusate Sodium 100 Mg Cap) 100 mg PO BID PRN PRN Reason: Constipation Enoxaparin Sodium (Enoxaparin 40 Mg/0.4 Ml Syringe) 40 mg SUBCUT Q24H [facility] Last Admin: 05/03/21 12:41 Dose: 40 mg Documented by: Guaifenesin/Codeine Phosphate (Codeine/Guaifenesin 10-100 Mg/5 Ml Syrup 5 Ml Cup) 5 ml PO Q4H PRN PRN Reason: Cough Last Admin: 05/03/21 23:09 Dose: 5 ml Documented by: Remdesivir 100 mg/ Sodium (Chloride) 100 mls @ 100 mls/hr IV Q24H [facility] Stop: 05/07/21 03:59 Last Admin: 05/04/21 02:04 Dose: 100 mls/hr Documented by: Ibuprofen (Ibuprofen 400 Mg Tab) 400 mg PO Q6H PRN PRN Reason: Pain Last Admin: 05/03/21 18:53 Dose: 400 mg Documented by: Ondansetron HCl (Ondansetron 4 Mg/2 Ml Sdv) 4 mg IVPUSH Q4H PRN PRN Reason: Nausea Pantoprazole Sodium (Pantoprazole 40 Mg Tab.Cr) 40 mg PO ACBREAKFAST [facility] Last Admin: 05/04/21 06:57 Dose: 40 mg Documented by: Sodium Chloride (Sodium Chloride 0.9% 2.5 Ml Syringe) 2.5 ml FLUSH ASDIRECTED PRN PRN Reason: Keep Vein Open Discontinued Medications Albuterol (Albuterol 8 Gm Inhaler) 8 gm INH ONETIME STA Stop: 05/03/21 01:38 Last Admin: 05/03/21 02:06 Dose: 90 mcg Documented by: Benzonatate (Benzonatate 100 Mg Cap) 200 mg PO ONETIME ONE Stop: 05/03/21 01:38 Last Admin: 05/03/21 02:11 Dose: 200 mg Documented by: Dexamethasone (Dexamethasone 10 Mg/Ml Sdv) 10 mg IVPUSH ONETIME ONE Stop: 05/03/21 02:28 Last Admin: 05/03/21 02:50 Dose: 10 mg Documented by: Remdesivir 200 mg/ Sodium (Chloride) 250 mls @ 250 mls/hr IV ONETIME ONE Stop: 05/03/21 02:27 Last Admin: 05/03/21 03:06 Dose: 250 mls/hr Documented by: Pantoprazole Sodium 40 mg/ (Sodium Chloride) 10 mls @ 300 mls/hr IV ONETIME ONE Stop: 05/03/21 08:23 Last Admin: 05/03/21 09:25 Dose: 300 mls/hr Documented by: Ibuprofen (Ibuprofen 400 Mg Tab) 400 mg PO ONETIME ONE Stop: 05/03/21 02:29 Last Admin: 05/03/21 02:50 Dose: 400 mg Documented by: Sodium Chloride (Sodium Chloride 0.9% 10 Ml Syringe) 10 ml FLUSH ASDIRECTED PRN PRN Reason: Keep Vein Open Last Admin: 05/03/21 02:12 Dose: 10 ml Documented by: Sodium Chloride (Sodium Chloride 0.9% 2.5 Ml Syringe) 2.5 ml FLUSH ASDIRECTED PRN PRN Reason: Keep Vein Open Last Admin: 05/03/21 02:12 Dose: 2.5 ml Documented by: - Exam Quality Assessment: Supplemental Oxygen (High flow nasal cannula, Vapotherm), DVT Prophylaxis General: Alert Lungs: Decreased Breath Sounds, Crackles (Bibasilar fine crackles). No: Normal Respiratory Effort (Dyspnea noted) Cardiovascular: Regular Rate, Regular Rhythm GI/Abdominal Exam: Normal Bowel Sounds, Soft, Non-Tender Back Exam: Normal Inspection, Full Range of Motion Extremities: Normal Inspection, Normal Range of Motion, Non-Tender, No Pedal Edema Neurological: No New Focal Deficit Psy/Mental Status: Alert, Normal Affect, Normal Mood - Patient Data Lab Results Last 24 hrs: Laboratory Results - last 24 hr 05/04/21 05/04/21 Range/Units 06:11 06:11 WBC 3.86 L (4.0-11.0) K/uL RBC 4.81 (4.30-5.90) M/uL Hgb 14.2 (12.0-16.0) g/dL Hct 41.5 (36.0-46.0) % MCV 86.3 (80.0-98.0) fL MCH 29.5 (27.0-32.0) pg MCHC 34.2 (31.0-37.0) g/dL RDW Std Deviation 44.8 (28.0-62.0) fl RDW Coeff of Yaneth 14 (11.0-15.0) % Plt Count 189 (150-400) K/uL MPV 11.10 (7.40-12.00) fL Neut % (Auto) 56.7 (48.0-80.0) % Lymph % (Auto) 32.9 (16.0-40.0) % [place] % (Auto) 10.4 (0.0-15.0) % Eos % (Auto) 0.0 (0.0-7.0) % Baso % (Auto) 0.0 (0.0-1.5) % Neut # (Auto) 2.2 (1.4-5.7) K/uL Lymph # (Auto) 1.3 (0.6-2.4) K/uL [place] # (Auto) 0.4 (0.0-0.8) K/uL Eos # (Auto) 0.0 (0.0-0.7) K/uL Baso # (Auto) 0.0 (0.0-0.1) K/uL Nucleated RBC % 0.0 /100WBC Nucleated RBCs # 0 K/uL Sodium 136 (136-145) mmol/L Potassium 4.2 (3.5-5.1) mmol/L Chloride 102 (98-107) mmol/L Carbon Dioxide 23.8 (21.0-32.0) mmol/L BUN 16 (7.0-18.0) mg/dL Creatinine 0.8 (0.6-1.0) mg/dL Est Cr Clr Drug Dosing 71.03 mL/min Estimated GFR (MDRD) > 60.0 ml/min Glucose 168 H (74-106) mg/dL Calcium 8.1 L (8.5-10.1) mg/dL Total Bilirubin 0.3 (0.2-1.0) mg/dL AST 56 H (15-37) IU/L ALT 55 (14-63) IU/L Alkaline Phosphatase 134 H (46-116) U/L Total Protein 6.8 (6.4-8.2) g/dL Albumin 3.0 L (3.4-5.0) g/dL Globulin 3.8 (2.6-4.0) g/dL Albumin/Globulin Ratio 0.8 L (0.9-1.6) Result Diagrams: 05/04/21 06:11 05/04/21 06:11 Sepsis Event Note - Evaluation Sepsis Screening Result: No Definite Risk - Focused Exam Vital Signs: Vital Signs Temp Pulse Resp BP Pulse Ox 05/04/21 03:33 97.0 F 72 18 121/77 93 L 05/04/21 02:01 70 20 93 L 05/04/21 01:25 84 18 89 L 05/03/21 23:20 90 L 05/03/21 23:15 97.2 F 83 18 139/82 87 L 05/03/21 20:32 97.9 F 75 18 139/97 H 91 L - Problem List & Annotations (1) Acute respiratory failure with hypoxia SNOMED Code(s): 07507624, 572680626 Code(s): J96.01 - ACUTE RESPIRATORY FAILURE WITH HYPOXIA Status: Acute Current Visit: Yes (2) COVID-19 SNOMED Code(s): 874910792 Code(s): U07.1 - COVID-19 Status: Acute Current Visit: Yes (3) Viral pneumonia SNOMED Code(s): 89130161 Code(s): J12.9 - VIRAL PNEUMONIA, UNSPECIFIED Status: Acute Current Visit: Yes (4) Obesity SNOMED Code(s): 983579606, 760927964 Code(s): E66.9 - OBESITY, UNSPECIFIED Status: Chronic Current Visit: Yes (5) Migraine SNOMED Code(s): 08115057 Code(s): G43.909 - MIGRAINE, UNSP, NOT INTRACTABLE, WITHOUT STATUS MIGRA INOSUS Status: Chronic Current Visit: No - Problem List Review Problem List Initiated/Reviewed/Updated: Yes - My Orders Last 24 Hours: My Active Orders 05/03/21 08:22 Communication Order [RC] ROUTINE Oxygen Therapy [RC] PRN RT Incentive Spirometry [RC] Q1HWA Up With Assistance [RC] ASDIRECTED VTE/DVT Education [RC] PER UNIT ROUTINE Vital Signs [RC] Q4H Docusate Sodium [Colace] 100 mg PO BID PRN Ondansetron [Zofran] 4 mg IVPUSH Q4H PRN Sodium Chloride 0.9% [Saline Flush] 2.5 ml FLUSH ASDIRECTED PRN RT Acapella [RESPCARE] Routine Saline Lock Insert [OM.PC] Routine Resuscitation Status Routine 05/03/21 08:23 Intake and Output [RC] QSHIFT 05/03/21 08:25 RT Post Treatment Assessment [RC] Click to Edit RT Pre-Treatment Assessment [RC] Click to Edit 05/03/21 08:32 Codeine/guaiFENesin [Robitussin AC] 5 ml PO Q4H PRN 05/03/21 09:23 Ibuprofen [Motrin] 400 mg PO Q6H PRN 05/03/21 10:00 Albuterol/Ipratropium [Combivent Respimat] See Dose Instructions INH Q4HRRT 05/03/21 12:00 Enoxaparin [Lovenox] 40 mg SUBCUT Q24H 05/04/21 07:30 Pantoprazole [ProTONIX] 40 mg PO ACBREAKFAST 05/05/21 05:11 CBC WITH AUTO DIFF [HEME] AM COMPREHENSIVE METABOLIC PN,CMP [CHEM] AM 05/06/21 05:11 CBC WITH AUTO DIFF [HEME] AM COMPREHENSIVE METABOLIC PN,CMP [CHEM] AM - Plan Plan:: This 50-year-old female admitted with acute hypoxic respiratory failure COVID- 19, viral pneumonia 1. Acute hypoxic respiratory failure, COVID-19 and viral pneumonia -Hypoxia overnight worsened patient transition to Vapotherm 40 L flow 81% FiO2 -Patient feeling somewhat improved since getting better oxygenation -Continue remdesivir 100 mg IV daily x4 days -Continue dexamethasone 6 mg p.o. daily until discharge or 10 days -Combivent inhaler every 4 hours -Tessalon Perles or Robitussin with codeine for cough as needed -Encourage I-S, Acapella and proning -Lovenox for DVT prophylaxis -Oxygen to keep sats greater 92% wean as possible -Monitor LFTs while on intensive care therapy VTE prophylaxis: Lovenox GI prophylaxis: Protonix while on high-dose steroids CODE STATUS: Full code Dispo 2 to 3 days pending improvement.
[2021-05-04] MEDS: Enoxaparin 40 MG/0.4 ML Syringe SUBCUT SCH (11:37)
[2021-05-04] MEDS: Dexamethasone 4 MG Tab PO SCH (22:00)
[2021-05-05] MEDS: Albuterol/Ipratropium 4 GM Inhalation Spray INH SCH ×6 (02:09→21:45)
[2021-05-05] MEDS: REMDESIVIR 100 MG in Sodium Chloride 0.9% 100 ML IV SCH (02:11)
[2021-05-05] MEDS: Codeine/guaiFENesin 10-100 MG/5 ML Syrup 5 ML Cup PO PRN ×4 (04:08→21:44)
[2021-05-05] MEDS: Benzonatate 100 MG Cap PO PRN ×3 (06:20→12:26)
[2021-05-05] MEDS: Pantoprazole 40 MG Tab.CR PO SCH (06:30)
[2021-05-05 07:27] LABS: BLOOD UREA NITROGEN,BUN 18 mg/dL (7.0-18.0); CARBON DIOXIDE,CO2 23.8 mmol/L (21.0-32.0); CHLORIDE,CL 104 mmol/L (98-107); GLUCOSE RANDOM 156 mg/dL (74-106); POTASSIUM,K 4.4 mmol/L (3.5-5.1); SODIUM,NA 138 mmol/L (136-145)
--- NOTE | 2021-05-05 08:20 | PCM.PN ---
- General Info Date of Service: 05/05/21 Admission Dx/Problem (Free Text): Admission Diagnosis/Problem Admission Diagnosis/Problem Pneumonia Subjective Update: Having significant coughing, wanting medicine. Denies chest pain. Continues to having shortness of breath. No chest pain. Poor appetite and poor sleeping due to coughing. Asked for me to call daughter Staci and update her. NO other concerns currently, would like to shower today. Functional Status: Reports: Pain Controlled, Tolerating Diet, Ambulating, Urinating - Review of Systems General: Reports: Weakness, Fatigue, Malaise HEENT: Reports: Headaches. Denies: Sore Throat, Visual Changes Pulmonary: Reports: Shortness of Breath, Pleuritic Chest Pain, Cough, Sputum. Denies: Hemoptysis, Wheezing Cardiovascular: Reports: Dyspnea on Exertion. Denies: Chest Pain Gastrointestinal: Reports: Decreased Appetite, Nausea. Denies: Abdominal Pain, Vomiting Genitourinary: Reports: No Symptoms. Denies: Dysuria, Frequency, Burning Musculoskeletal: Reports: No Symptoms Skin: Reports: No Symptoms Neurological: Reports: No Symptoms Psychiatric: Reports: No Symptoms - Patient Data Vitals - Most Recent: Last Vital Signs Temp 96.6 F L 05/05/21 04:01 Pulse 72 05/05/21 04:01 Resp 20 05/05/21 04:01 BP 126/95 H 05/05/21 04:01 Pulse Ox 93 L 05/05/21 04:01 Weight - Most Recent: 93.395 kg I&O - Last 24 Hours: Intake & Output 05/04/21 05/05/21 05/05/21 22:59 06:59 14:59 Intake Total 620 Balance 620 Lab Results Last 24 Hours: Laboratory Results - last 24 hr 05/04/21 05/05/21 05/05/21 Range/Units 06:11 06:05 06:05 WBC 7.39 (4.0-11.0) K/uL RBC 4.89 (4.30-5.90) M/uL Hgb 14.6 (12.0-16.0) g/dL Hct 42.4 (36.0-46.0) % MCV 86.7 (80.0-98.0) fL MCH 29.9 (27.0-32.0) pg MCHC 34.4 (31.0-37.0) g/dL RDW Std Deviation 46.4 (28.0-62.0) fl RDW Coeff of Yaneth 15 (11.0-15.0) % Plt Count 257 (150-400) K/uL MPV 11.20 (7.40-12.00) fL Neut % (Auto) 69.2 (48.0-80.0) % Lymph % (Auto) 20.8 (16.0-40.0) % [place] % (Auto) 10.0 (0.0-15.0) % Eos % (Auto) 0.0 (0.0-7.0) % Baso % (Auto) 0.0 (0.0-1.5) % Neut # (Auto) 5.1 (1.4-5.7) K/uL Lymph # (Auto) 1.5 (0.6-2.4) K/uL [place] # (Auto) 0.7 (0.0-0.8) K/uL Eos # (Auto) 0.0 (0.0-0.7) K/uL Baso # (Auto) 0.0 (0.0-0.1) K/uL Nucleated RBC % 0.0 /100WBC Nucleated RBCs # 0 K/uL Sodium 138 (136-145) mmol/L Potassium 4.4 (3.5-5.1) mmol/L Chloride 104 (98-107) mmol/L Carbon Dioxide 23.8 (21.0-32.0) mmol/L BUN 18 (7.0-18.0) mg/dL Creatinine 0.8 (0.6-1.0) mg/dL Est Cr Clr Drug Dosing 71.03 mL/min Estimated GFR (MDRD) > 60.0 ml/min Glucose 156 H (74-106) mg/dL Calcium 8.4 L (8.5-10.1) mg/dL Total Bilirubin 0.3 (0.2-1.0) mg/dL AST 49 H (15-37) IU/L ALT 52 (14-63) IU/L Alkaline Phosphatase 123 H (46-116) U/L C-Reactive Protein 7.80 H (0.00-0.90) mg/dL Total Protein 6.7 (6.4-8.2) g/dL Albumin 3.0 L (3.4-5.0) g/dL Globulin 3.7 (2.6-4.0) g/dL Albumin/Globulin Ratio 0.8 L (0.9-1.6) Med Orders - Current: Current Medications Acetaminophen (Acetaminophen 325 Mg Tab) 650 mg PO Q6H PRN PRN Reason: Pain/Fever Last Admin: 05/04/21 22:00 Dose: 650 mg Documented by: Albuterol/Ipratropium (Albuterol/Ipratropium 4 Gm Inhalation [place]) 0 gm INH Q4HRRT [facility] Last Admin: 05/05/21 06:20 Dose: 2 puff Documented by: Benzonatate (Benzonatate 100 Mg Cap) 100 mg PO Q6H PRN PRN Reason: Cough Last Admin: 05/05/21 06:20 Dose: 100 mg Documented by: Dexamethasone (Dexamethasone 4 Mg Tab) 6 mg PO Q24H [facility] Last Admin: 05/04/21 22:00 Dose: 6 mg Documented by: Docusate Sodium (Docusate Sodium 100 Mg Cap) 100 mg PO BID PRN PRN Reason: Constipation Enoxaparin Sodium (Enoxaparin 40 Mg/0.4 Ml Syringe) 40 mg SUBCUT Q24H [facility] Last Admin: 05/04/21 11:37 Dose: 40 mg Documented by: Guaifenesin/Codeine Phosphate (Codeine/Guaifenesin 10-100 Mg/5 Ml Syrup 5 Ml Cup) 5 ml PO Q4H PRN PRN Reason: Cough Last Admin: 05/05/21 04:08 Dose: 5 ml Documented by: Remdesivir 100 mg/ Sodium (Chloride) 100 mls @ 100 mls/hr IV Q24H [facility] Stop: 05/07/21 03:59 Last Admin: 05/05/21 02:11 Dose: 100 mls/hr Documented by: Ibuprofen (Ibuprofen 400 Mg Tab) 400 mg PO Q6H PRN PRN Reason: Pain Last Admin: 05/03/21 18:53 Dose: 400 mg Documented by: Ondansetron HCl (Ondansetron 4 Mg/2 Ml Sdv) 4 mg IVPUSH Q4H PRN PRN Reason: Nausea Pantoprazole Sodium (Pantoprazole 40 Mg Tab.Cr) 40 mg PO ACBREAKFAST [facility] Last Admin: 05/05/21 06:30 Dose: 40 mg Documented by: Sodium Chloride (Sodium Chloride 0.9% 2.5 Ml Syringe) 2.5 ml FLUSH ASDIRECTED PRN PRN Reason: Keep Vein Open Discontinued Medications Albuterol (Albuterol 8 Gm Inhaler) 8 gm INH ONETIME STA Stop: 05/03/21 01:38 Last Admin: 05/03/21 02:06 Dose: 90 mcg Documented by: Benzonatate (Benzonatate 100 Mg Cap) 200 mg PO ONETIME ONE Stop: 05/03/21 01:38 Last Admin: 05/03/21 02:11 Dose: 200 mg Documented by: Dexamethasone (Dexamethasone 10 Mg/Ml Sdv) 10 mg IVPUSH ONETIME ONE Stop: 05/03/21 02:28 Last Admin: 05/03/21 02:50 Dose: 10 mg Documented by: Remdesivir 200 mg/ Sodium (Chloride) 250 mls @ 250 mls/hr IV ONETIME ONE Stop: 05/03/21 02:27 Last Admin: 05/03/21 03:06 Dose: 250 mls/hr Documented by: Pantoprazole Sodium 40 mg/ (Sodium Chloride) 10 mls @ 300 mls/hr IV ONETIME ONE Stop: 05/03/21 08:23 Last Admin: 05/03/21 09:25 Dose: 300 mls/hr Documented by: Ibuprofen (Ibuprofen 400 Mg Tab) 400 mg PO ONETIME ONE Stop: 05/03/21 02:29 Last Admin: 05/03/21 02:50 Dose: 400 mg Documented by: Sodium Chloride (Sodium Chloride 0.9% 10 Ml Syringe) 10 ml FLUSH ASDIRECTED PRN PRN Reason: Keep Vein Open Last Admin: 05/03/21 02:12 Dose: 10 ml Documented by: Sodium Chloride (Sodium Chloride 0.9% 2.5 Ml Syringe) 2.5 ml FLUSH ASDIRECTED PRN PRN Reason: Keep Vein Open Last Admin: 05/03/21 02:12 Dose: 2.5 ml Documented by: - Exam General: Alert, Oriented, Cooperative, Mild Distress (coughing attack) HEENT: Pupils Equal, Pupils Reactive Neck: Supple Lungs: Decreased Breath Sounds, Crackles (fine crackles, slightly improving to bibasilar region) Cardiovascular: Regular Rate, Regular Rhythm GI/Abdominal Exam: Normal Bowel Sounds, Soft, Non-Tender Back Exam: Normal Inspection, Full Range of Motion Extremities: Normal Inspection, Normal Range of Motion, Non-Tender, No Pedal Edema Neurological: No New Focal Deficit Psy/Mental Status: Alert, Normal Affect, Normal Mood - Patient Data Lab Results Last 24 hrs: Laboratory Results - last 24 hr 05/04/21 05/05/21 05/05/21 Range/Units 06:11 06:05 06:05 WBC 7.39 (4.0-11.0) K/uL RBC 4.89 (4.30-5.90) M/uL Hgb 14.6 (12.0-16.0) g/dL Hct 42.4 (36.0-46.0) % MCV 86.7 (80.0-98.0) fL MCH 29.9 (27.0-32.0) pg MCHC 34.4 (31.0-37.0) g/dL RDW Std Deviation 46.4 (28.0-62.0) fl RDW Coeff of Yaneth 15 (11.0-15.0) % Plt Count 257 (150-400) K/uL MPV 11.20 (7.40-12.00) fL Neut % (Auto) 69.2 (48.0-80.0) % Lymph % (Auto) 20.8 (16.0-40.0) % [place] % (Auto) 10.0 (0.0-15.0) % Eos % (Auto) 0.0 (0.0-7.0) % Baso % (Auto) 0.0 (0.0-1.5) % Neut # (Auto) 5.1 (1.4-5.7) K/uL Lymph # (Auto) 1.5 (0.6-2.4) K/uL [place] # (Auto) 0.7 (0.0-0.8) K/uL Eos # (Auto) 0.0 (0.0-0.7) K/uL Baso # (Auto) 0.0 (0.0-0.1) K/uL Nucleated RBC % 0.0 /100WBC Nucleated RBCs # 0 K/uL Sodium 138 (136-145) mmol/L Potassium 4.4 (3.5-5.1) mmol/L Chloride 104 (98-107) mmol/L Carbon Dioxide 23.8 (21.0-32.0) mmol/L BUN 18 (7.0-18.0) mg/dL Creatinine 0.8 (0.6-1.0) mg/dL Est Cr Clr Drug Dosing 71.03 mL/min Estimated GFR (MDRD) > 60.0 ml/min Glucose 156 H (74-106) mg/dL Calcium 8.4 L (8.5-10.1) mg/dL Total Bilirubin 0.3 (0.2-1.0) mg/dL AST 49 H (15-37) IU/L ALT 52 (14-63) IU/L Alkaline Phosphatase 123 H (46-116) U/L C-Reactive Protein 7.80 H (0.00-0.90) mg/dL Total Protein 6.7 (6.4-8.2) g/dL Albumin 3.0 L (3.4-5.0) g/dL Globulin 3.7 (2.6-4.0) g/dL Albumin/Globulin Ratio 0.8 L (0.9-1.6) Result Diagrams: 05/05/21 06:05 05/05/21 06:05 Sepsis Event Note - Evaluation Sepsis Screening Result: Possible Sepsis Risk - Focused Exam Vital Signs: Vital Signs Temp Pulse Resp BP BP Pulse Ox 05/05/21 04:01 96.6 F L 72 20 126/95 H 93 L 05/05/21 00:05 97.0 F 60 20 144/82 H 92 L 05/04/21 22:05 20 92 L 05/04/21 21:39 98.2 F 72 20 151/84 H 89 L - Problem List & Annotations (1) Acute respiratory failure with hypoxia SNOMED Code(s): 91881711, 778995541 Code(s): J96.01 - ACUTE RESPIRATORY FAILURE WITH HYPOXIA Status: Acute Current Visit: Yes (2) COVID-19 SNOMED Code(s): 050045153 Code(s): U07.1 - COVID-19 Status: Acute Current Visit: Yes (3) Viral pneumonia SNOMED Code(s): 33148637 Code(s): J12.9 - VIRAL PNEUMONIA, UNSPECIFIED Status: Acute Current Visit: Yes (4) Obesity SNOMED Code(s): 202702283, 375666663 Code(s): E66.9 - OBESITY, UNSPECIFIED Status: Chronic Current Visit: Yes (5) Migraine SNOMED Code(s): 36554520 Code(s): G43.909 - MIGRAINE, UNSP, NOT INTRACTABLE, WITHOUT STATUS MIGRAINOSUS Status: Chronic Current Visit: No - Problem List Review Problem List Initiated/Reviewed/Updated: Yes - My Orders Last 24 Hours: My Active Orders 05/04/21 07:30 Pantoprazole [ProTONIX] 40 mg PO ACBREAKFAST 05/06/21 05:11 CBC WITH AUTO DIFF [HEME] AM COMPREHENSIVE METABOLIC PN,CMP [CHEM] AM - Plan Plan:: This 50-year-old female admitted with acute hypoxic respiratory failure COVID- 19, viral pneumonia 1. Acute hypoxic respiratory failure, COVID-19 and viral pneumonia -Continues to have hypoxia, but stable on 40L flw and 80-85% FIO2. -Having cough, medicine helps and is due for medicine now. -Continue remdesivir 100 mg IV daily x4 days -Continue dexamethasone 6 mg p.o. daily until discharge or 10 days -Combivent inhaler every 4 hours -Tessalon Perles or Robitussin with codeine for cough as needed -Encourage I-S, Acapella and proning -Lovenox for DVT prophylaxis -Oxygen to keep sats greater 92% wean as possible -Monitor LFTs while on intensive care therapy VTE prophylaxis: Lovenox GI prophylaxis: Protonix while on high-dose steroids CODE STATUS: Full code Dispo 2 to 3 days pending improvement. Attempted to call daughter Staci [phone], number provider from patient on white board. No answer and no answering machine to leave message. Will notify patient.
[2021-05-05] MEDS: Enoxaparin 40 MG/0.4 ML Syringe SUBCUT SCH (11:51)
[2021-05-05] MEDS: Melatonin 3 MG Tab PO SCH (21:45)
[2021-05-05] MEDS: Dexamethasone 4 MG Tab PO SCH (23:59)
[2021-05-06] MEDS: Albuterol/Ipratropium 4 GM Inhalation Spray INH SCH ×6 (02:43→22:18)
[2021-05-06] MEDS: REMDESIVIR 100 MG in Sodium Chloride 0.9% 100 ML IV SCH (02:44)
[2021-05-06] MEDS: Benzonatate 100 MG Cap PO PRN ×3 (06:44→22:32)
[2021-05-06] MEDS: Pantoprazole 40 MG Tab.CR PO SCH (06:45)
[2021-05-06 06:53] LABS: BLOOD UREA NITROGEN,BUN 20 mg/dL (7.0-18.0); CARBON DIOXIDE,CO2 25.3 mmol/L (21.0-32.0); CHLORIDE,CL 102 mmol/L (98-107); GLUCOSE RANDOM 140 mg/dL (74-106); POTASSIUM,K 4.1 mmol/L (3.5-5.1); SODIUM,NA 137 mmol/L (136-145)
[2021-05-06] MEDS: Ibuprofen 400 MG Tab PO PRN (08:43)
[2021-05-06] MEDS: Enoxaparin 40 MG/0.4 ML Syringe SUBCUT SCH (13:44)
--- NOTE | 2021-05-06 15:36 | PCM.PN ---
- General Info Date of Service: 05/06/21 - Review of Systems Systems Review Comment:: shortness of breath a little bit better, cough worse today - Patient Data Vitals - Most Recent: Last Vital Signs Temp 36.6 C 05/06/21 14:00 Pulse 72 05/06/21 14:00 Resp 18 05/06/21 14:00 BP 112/70 05/06/21 14:00 Pulse Ox 94 L 05/06/21 14:00 Weight - Most Recent: 93.395 kg I&O - Last 24 Hours: Intake & Output 05/06/21 05/06/21 05/06/21 06:59 14:59 22:59 Intake Total 1200 Balance 1200 Lab Results Last 24 Hours: Laboratory Results - last 24 hr 05/06/21 05/06/21 Range/Units 05:10 05:10 WBC 8.90 (4.0-11.0) K/uL RBC 4.78 (4.30-5.90) M/uL Hgb 14.2 (12.0-16.0) g/dL Hct 41.5 (36.0-46.0) % MCV 86.8 (80.0-98.0) fL MCH 29.7 (27.0-32.0) pg MCHC 34.2 (31.0-37.0) g/dL RDW Std Deviation 45.6 (28.0-62.0) fl RDW Coeff of Yaneth 14 (11.0-15.0) % Plt Count 292 (150-400) K/uL MPV 11.30 (7.40-12.00) fL Neut % (Auto) 69.7 (48.0-80.0) % Lymph % (Auto) 19.1 (16.0-40.0) % [place] % (Auto) 11.1 (0.0-15.0) % Eos % (Auto) 0.0 (0.0-7.0) % Baso % (Auto) 0.1 (0.0-1.5) % Neut # (Auto) 6.2 H (1.4-5.7) K/uL Lymph # (Auto) 1.7 (0.6-2.4) K/uL [place] # (Auto) 1.0 H (0.0-0.8) K/uL Eos # (Auto) 0.0 (0.0-0.7) K/uL Baso # (Auto) 0.0 (0.0-0.1) K/uL Nucleated RBC % 0.0 /100WBC Nucleated RBCs # 0 K/uL Sodium 137 (136-145) mmol/L Potassium 4.1 (3.5-5.1) mmol/L Chloride 102 (98-107) mmol/L Carbon Dioxide 25.3 (21.0-32.0) mmol/L BUN 20 H (7.0-18.0) mg/dL Creatinine 0.8 (0.6-1.0) mg/dL Est Cr Clr Drug Dosing 71.03 mL/min Estimated GFR (MDRD) > 60.0 ml/min Glucose 140 H (74-106) mg/dL Calcium 8.2 L (8.5-10.1) mg/dL Total Bilirubin 0.4 (0.2-1.0) mg/dL AST 42 H (15-37) IU/L ALT 55 (14-63) IU/L Alkaline Phosphatase 112 (46-116) U/L Total Protein 6.4 (6.4-8.2) g/dL Albumin 2.9 L (3.4-5.0) g/dL Globulin 3.5 (2.6-4.0) g/dL Albumin/Globulin Ratio 0.8 L (0.9-1.6) Med Orders - Current: Current Medications Acetaminophen (Acetaminophen 325 Mg Tab) 650 mg PO Q6H PRN PRN Reason: Pain/Fever Last Admin: 05/04/21 22:00 Dose: 650 mg Documented by: Albuterol/Ipratropium (Albuterol/Ipratropium 4 Gm Inhalation [place]) 0 gm INH Q4HRRT [facility] Last Admin: 05/06/21 13:44 Dose: 2 puff Documented by: Benzonatate (Benzonatate 100 Mg Cap) 200 mg PO Q6H PRN PRN Reason: Cough Last Admin: 05/06/21 06:44 Dose: 200 mg Documented by: Dexamethasone (Dexamethasone 4 Mg Tab) 6 mg PO Q24H [facility] Last Admin: 05/05/21 23:59 Dose: 6 mg Documented by: Docusate Sodium (Docusate Sodium 100 Mg Cap) 100 mg PO BID PRN PRN Reason: Constipation Enoxaparin Sodium (Enoxaparin 40 Mg/0.4 Ml Syringe) 40 mg SUBCUT Q24H [facility] Last Admin: 05/06/21 13:44 Dose: 40 mg Documented by: Guaifenesin/Codeine Phosphate (Codeine/Guaifenesin 10-100 Mg/5 Ml Syrup 5 Ml Cup) 10 ml PO Q4H PRN PRN Reason: Cough Last Admin: 05/05/21 21:44 Dose: 10 ml Documented by: Remdesivir 100 mg/ Sodium (Chloride) 100 mls @ 100 mls/hr IV Q24H [facility] Stop: 05/07/21 03:59 Last Admin: 05/06/21 02:44 Dose: 100 mls/hr Documented by: Ibuprofen (Ibuprofen 400 Mg Tab) 400 mg PO Q6H PRN PRN Reason: Pain Last Admin: 05/06/21 08:43 Dose: 400 mg Documented by: Melatonin (Melatonin 3 Mg Tab) 6 mg PO BEDTIME [facility] Last Admin: 05/05/21 21:45 Dose: 6 mg Documented by: Ondansetron HCl (Ondansetron 4 Mg/2 Ml Sdv) 4 mg IVPUSH Q4H PRN PRN Reason: Nausea Pantoprazole Sodium (Pantoprazole 40 Mg Tab.Cr) 40 mg PO ACBREAKFAST [facility] Last Admin: 05/06/21 06:45 Dose: 40 mg Documented by: Sodium Chloride (Sodium Chloride 0.9% 2.5 Ml Syringe) 2.5 ml FLUSH ASDIRECTED PRN PRN Reason: Keep Vein Open Discontinued Medications Albuterol (Albuterol 8 Gm Inhaler) 8 gm INH ONETIME STA Stop: 05/03/21 01:38 Last Admin: 05/03/21 02:06 Dose: 90 mcg Documented by: Benzonatate (Benzonatate 100 Mg Cap) 200 mg PO ONETIME ONE Stop: 05/03/21 01:38 Last Admin: 05/03/21 02:11 Dose: 200 mg Documented by: Benzonatate (Benzonatate 100 Mg Cap) 100 mg PO Q6H PRN PRN Reason: Cough Last Admin: 05/05/21 06:20 Dose: 100 mg Documented by: Dexamethasone (Dexamethasone 10 Mg/Ml Sdv) 10 mg IVPUSH ONETIME ONE Stop: 05/03/21 02:28 Last Admin: 05/03/21 02:50 Dose: 10 mg Documented by: Guaifenesin/Codeine Phosphate (Codeine/Guaifenesin 10-100 Mg/5 Ml Syrup 5 Ml Cup) 5 ml PO Q4H PRN PRN Reason: Cough Last Admin: 05/05/21 04:08 Dose: 5 ml Documented by: Remdesivir 200 mg/ Sodium (Chloride) 250 mls @ 250 mls/hr IV ONETIME ONE Stop: 05/03/21 02:27 Last Admin: 05/03/21 03:06 Dose: 250 mls/hr Documented by: Pantoprazole Sodium 40 mg/ (Sodium Chloride) 10 mls @ 300 mls/hr IV ONETIME ONE Stop: 05/03/21 08:23 Last Admin: 05/03/21 09:25 Dose: 300 mls/hr Documented by: Ibuprofen (Ibuprofen 400 Mg Tab) 400 mg PO ONETIME ONE Stop: 05/03/21 02:29 Last Admin: 05/03/21 02:50 Dose: 400 mg Documented by: Sodium Chloride (Sodium Chloride 0.9% 10 Ml Syringe) 10 ml FLUSH ASDIRECTED PRN PRN Reason: Keep Vein Open Last Admin: 05/03/21 02:12 Dose: 10 ml Documented by: Sodium Chloride (Sodium Chloride 0.9% 2.5 Ml Syringe) 2.5 ml FLUSH ASDIRECTED PRN PRN Reason: Keep Vein Open Last Admin: 05/03/21 02:12 Dose: 2.5 ml Documented by: - Exam General: Alert, Oriented Lungs: Normal Respiratory Effort, Rhonchi Cardiovascular: Regular Rate, Regular Rhythm GI/Abdominal Exam: Soft, Non-Tender, No Distention Extremities: Non-Tender, No Pedal Edema Skin: Warm, Dry, Intact Neurological: No New Focal Deficit - Patient Data Lab Results Last 24 hrs: Laboratory Results - last 24 hr 05/06/21 05/06/21 Range/Units 05:10 05:10 WBC 8.90 (4.0-11.0) K/uL RBC 4.78 (4.30-5.90) M/uL Hgb 14.2 (12.0-16.0) g/dL Hct 41.5 (36.0-46.0) % MCV 86.8 (80.0-98.0) fL MCH 29.7 (27.0-32.0) pg MCHC 34.2 (31.0-37.0) g/dL RDW Std Deviation 45.6 (28.0-62.0) fl RDW Coeff of Yaneth 14 (11.0-15.0) % Plt Count 292 (150-400) K/uL MPV 11.30 (7.40-12.00) fL Neut % (Auto) 69.7 (48.0-80.0) % Lymph % (Auto) 19.1 (16.0-40.0) % [place] % (Auto) 11.1 (0.0-15.0) % Eos % (Auto) 0.0 (0.0-7.0) % Baso % (Auto) 0.1 (0.0-1.5) % Neut # (Auto) 6.2 H (1.4-5.7) K/uL Lymph # (Auto) 1.7 (0.6-2.4) K/uL [place] # (Auto) 1.0 H (0.0-0.8) K/uL Eos # (Auto) 0.0 (0.0-0.7) K/uL Baso # (Auto) 0.0 (0.0-0.1) K/uL Nucleated RBC % 0.0 /100WBC Nucleated RBCs # 0 K/uL Sodium 137 (136-145) mmol/L Potassium 4.1 (3.5-5.1) mmol/L Chloride 102 (98-107) mmol/L Carbon Dioxide 25.3 (21.0-32.0) mmol/L BUN 20 H (7.0-18.0) mg/dL Creatinine 0.8 (0.6-1.0) mg/dL Est Cr Clr Drug Dosing 71.03 mL/min Estimated GFR (MDRD) > 60.0 ml/min Glucose 140 H (74-106) mg/dL Calcium 8.2 L (8.5-10.1) mg/dL Total Bilirubin 0.4 (0.2-1.0) mg/dL AST 42 H (15-37) IU/L ALT 55 (14-63) IU/L Alkaline Phosphatase 112 (46-116) U/L Total Protein 6.4 (6.4-8.2) g/dL Albumin 2.9 L (3.4-5.0) g/dL Globulin 3.5 (2.6-4.0) g/dL Albumin/Globulin Ratio 0.8 L (0.9-1.6) Result Diagrams: 05/06/21 05:10 05/06/21 05:10 Sepsis Event Note - Evaluation Sepsis Screening Result: No Definite Risk - Focused Exam Vital Signs: Vital Signs Temp Pulse Resp BP BP Pulse Ox 05/06/21 14:00 36.6 C 72 18 112/70 94 L 05/06/21 10:07 36.3 C 75 20 111/66 95 05/06/21 08:30 36.2 C 75 20 113/73 113/73 93 L 05/06/21 04:47 36.4 C 74 18 128/69 95 - Problem List Review Problem List Initiated/Reviewed/Updated: Yes - Plan Plan:: This 50-year-old female admitted with acute hypoxic respiratory failure COVID- 19, viral pneumonia 1. Acute hypoxic respiratory failure, COVID-19 and viral pneumonia -Continues to have hypoxia, but stable on 45L flw and 80-85% FIO2. -Continue remdesivir 100 mg IV daily x4 days -Continue dexamethasone 6 mg p.o. daily until discharge or 10 days -Combivent inhaler every 4 hours -Tessalon Perles or Robitussin with codeine for cough as needed -Encourage I-S, Acapella and proning -Lovenox for DVT prophylaxis -Oxygen to keep sats greater 92% wean as possible -Monitor LFTs while on intensive care therapy -will check CT chest VTE prophylaxis: Lovenox GI prophylaxis: Protonix while on high-dose steroids CODE STATUS: Full code Dispo 2 to 3 days pending improvement. Did have phone call with daughter in patient's room today
[2021-05-06] MEDS: Codeine/guaiFENesin 10-100 MG/5 ML Syrup 5 ML Cup PO PRN ×2 (16:28→22:32)
[2021-05-06] MEDS: Melatonin 3 MG Tab PO SCH (22:17)
[2021-05-07] MEDS: Dexamethasone 4 MG Tab PO SCH ×2 (00:25→22:20)
[2021-05-07] MEDS: Acetaminophen 325 MG Tab PO PRN (00:42)
[2021-05-07] MEDS: Albuterol/Ipratropium 4 GM Inhalation Spray INH SCH ×7 (02:13→21:47)
[2021-05-07] MEDS: REMDESIVIR 100 MG in Sodium Chloride 0.9% 100 ML IV SCH (02:17)
[2021-05-07] MEDS: Codeine/guaiFENesin 10-100 MG/5 ML Syrup 5 ML Cup PO PRN ×4 (02:32→20:57)
[2021-05-07] MEDS: Benzonatate 100 MG Cap PO PRN ×3 (06:01→23:29)
[2021-05-07] MEDS: Pantoprazole 40 MG Tab.CR PO SCH (07:00)
[2021-05-07 08:36] LABS: BLOOD UREA NITROGEN,BUN 18 mg/dL (7.0-18.0); CARBON DIOXIDE,CO2 24.2 mmol/L (21.0-32.0); CHLORIDE,CL 103 mmol/L (98-107); GLUCOSE RANDOM 172 mg/dL (74-106); POTASSIUM,K 4.3 mmol/L (3.5-5.1); SODIUM,NA 136 mmol/L (136-145)
--- NOTE | 2021-05-07 14:51 | CR ---
INDICATION: Cough. Worsening hypoxia. TECHNIQUE: AP portable chest x-ray. COMPARISON: 05/03/2021. FINDINGS: Very shallow inspiration. Patchy infiltrates in the mid and lower lungs have improved becoming less prominent and dense overall and less diffuse. Persistent mild to moderate infiltrates greatest in the right lung base medially and to a greater extent in the left perihilar lung. Findings suggest an improving infectious or inflammatory process such as a patchy pneumonia including COVID pneumonia. Component of improving other inflammatory etiology or pulmonary edema/CHF is possible. Clinical and laboratory correlation recommended. Superimposed linear atelectasis or scarring in the mid and lower lungs today. Heart is normal in size. Chest otherwise unremarkable. Dictated by Angel Thompson MD @ 05/07/2021 2:50:[address] Angel Thompson @ May 07 2021 2:50PM
[2021-05-07] MEDS: Enoxaparin 40 MG/0.4 ML Syringe SUBCUT SCH (15:08)
--- NOTE | 2021-05-07 16:26 | PCM.PN ---
- General Info Date of Service: 05/07/21 Admission Dx/Problem (Free Text): Admission Diagnosis/Problem Admission Diagnosis/Problem Pneumonia Subjective Update: . Seen at bedside, bruising on her abdomen, oxygen requirement has gone up in the 24 hours, patient states that she feels a little better but still short of breath while talking to me. Denies any chest pain dizziness. Functional Status: Reports: Tolerating Diet, Urinating. Denies: Ambulating - Review of Systems General: Reports: Weakness, Fatigue, Malaise. Denies: Fever Pulmonary: Reports: Shortness of Breath, Cough. Denies: Pleuritic Chest Pain, Sputum Cardiovascular: Reports: Dyspnea on Exertion. Denies: Chest Pain, Palpitations Gastrointestinal: Denies: Abdominal Pain, Constipation, Decreased Appetite Genitourinary: Denies: Dysuria, Frequency, Burning Musculoskeletal: Denies: Neck Pain, Shoulder Pain, Arm Pain Skin: Denies: Cyanosis, Jaundice, Mottled - Patient Data Vitals - Most Recent: Last Vital Signs Temp 36.2 C 05/07/21 15:14 Pulse 78 05/07/21 15:14 Resp 20 05/07/21 15:14 BP 173/91 H 05/07/21 15:14 Pulse Ox 94 L 05/07/21 15:14 Weight - Most Recent: 93.395 kg I&O - Last 24 Hours: Intake & Output 05/07/21 05/07/21 05/07/21 06:59 14:59 22:59 Intake Total 1180 1120 Output Total 500 800 Balance 680 320 Lab Results Last 24 Hours: Laboratory Results - last 24 hr 05/07/21 05/07/21 Range/Units 07:41 07:41 WBC 6.11 (4.0-11.0) K/uL RBC 4.68 (4.30-5.90) M/uL Hgb 13.7 (12.0-16.0) g/dL Hct 40.5 (36.0-46.0) % MCV 86.5 (80.0-98.0) fL MCH 29.3 (27.0-32.0) pg MCHC 33.8 (31.0-37.0) g/dL RDW Std Deviation 45.3 (28.0-62.0) fl RDW Coeff of Yaneth 14 (11.0-15.0) % Plt Count 317 (150-400) K/uL MPV 10.30 (7.40-12.00) fL Neut % (Auto) 70.8 (48.0-80.0) % Lymph % (Auto) 22.9 (16.0-40.0) % [place] % (Auto) 6.1 (0.0-15.0) % Eos % (Auto) 0.0 (0.0-7.0) % Baso % (Auto) 0.2 (0.0-1.5) % Neut # (Auto) 4.3 (1.4-5.7) K/uL Lymph # (Auto) 1.4 (0.6-2.4) K/uL [place] # (Auto) 0.4 (0.0-0.8) K/uL Eos # (Auto) 0.0 (0.0-0.7) K/uL Baso # (Auto) 0.0 (0.0-0.1) K/uL Nucleated RBC % 0.0 /100WBC Nucleated RBCs # 0 K/uL Sodium 136 (136-145) mmol/L Potassium 4.3 (3.5-5.1) mmol/L Chloride 103 (98-107) mmol/L Carbon Dioxide 24.2 (21.0-32.0) mmol/L BUN 18 (7.0-18.0) mg/dL Creatinine 0.8 (0.6-1.0) mg/dL Est Cr Clr Drug Dosing 71.03 mL/min Estimated GFR (MDRD) > 60.0 ml/min Glucose 172 H (74-106) mg/dL Calcium 8.0 L (8.5-10.1) mg/dL Total Bilirubin 0.4 (0.2-1.0) mg/dL AST 20 (15-37) IU/L ALT 47 (14-63) IU/L Alkaline Phosphatase 107 (46-116) U/L Total Protein 6.4 (6.4-8.2) g/dL Albumin 2.8 L (3.4-5.0) g/dL Globulin 3.6 (2.6-4.0) g/dL Albumin/Globulin Ratio 0.8 L (0.9-1.6) Med Orders - Current: Current Medications Acetaminophen (Acetaminophen 325 Mg Tab) 650 mg PO Q6H PRN PRN Reason: Pain/Fever Last Admin: 05/07/21 00:42 Dose: 650 mg Documented by: Albuterol/Ipratropium (Albuterol/Ipratropium 4 Gm Inhalation [place]) 0 gm INH Q4HRRT [facility] Last Admin: 05/07/21 15:07 Dose: 2 puff Documented by: Benzonatate (Benzonatate 100 Mg Cap) 200 mg PO Q6H PRN PRN Reason: Cough Last Admin: 05/07/21 15:07 Dose: 200 mg Documented by: Dexamethasone (Dexamethasone 4 Mg Tab) 6 mg PO Q24H [facility] Last Admin: 05/07/21 00:25 Dose: 6 mg Documented by: Docusate Sodium (Docusate Sodium 100 Mg Cap) 100 mg PO BID PRN PRN Reason: Constipation Enoxaparin Sodium (Enoxaparin 40 Mg/0.4 Ml Syringe) 40 mg SUBCUT Q24H [facility] Last Admin: 05/07/21 15:08 Dose: 40 mg Documented by: Guaifenesin/Codeine Phosphate (Codeine/Guaifenesin 10-100 Mg/5 Ml Syrup 5 Ml Cu p) 10 ml PO Q4H PRN PRN Reason: Cough Last Admin: 05/07/21 10:17 Dose: 10 ml Documented by: Ibuprofen (Ibuprofen 400 Mg Tab) 400 mg PO Q6H PRN PRN Reason: Pain Last Admin: 05/06/21 08:43 Dose: 400 mg Documented by: Melatonin (Melatonin 3 Mg Tab) 6 mg PO BEDTIME [facility] Last Admin: 05/06/21 22:17 Dose: 6 mg Documented by: Ondansetron HCl (Ondansetron 4 Mg/2 Ml Sdv) 4 mg IVPUSH Q4H PRN PRN Reason: Nausea Pantoprazole Sodium (Pantoprazole 40 Mg Tab.Cr) 40 mg PO ACBREAKFAST [facility] Last Admin: 05/07/21 07:00 Dose: 40 mg Documented by: Sodium Chloride (Sodium Chloride 0.9% 2.5 Ml Syringe) 2.5 ml FLUSH ASDIRECTED PRN PRN Reason: Keep Vein Open Last Admin: 05/07/21 10:16 Dose: 2.5 ml Documented by: Discontinued Medications Albuterol (Albuterol 8 Gm Inhaler) 8 gm INH ONETIME STA Stop: 05/03/21 01:38 Last Admin: 05/03/21 02:06 Dose: 90 mcg Documented by: Benzonatate (Benzonatate 100 Mg Cap) 200 mg PO ONETIME ONE Stop: 05/03/21 01:38 Last Admin: 05/03/21 02:11 Dose: 200 mg Documented by: Benzonatate (Benzonatate 100 Mg Cap) 100 mg PO Q6H PRN PRN Reason: Cough Last Admin: 05/05/21 06:20 Dose: 100 mg Documented by: Dexamethasone (Dexamethasone 10 Mg/Ml Sdv) 10 mg IVPUSH ONETIME ONE Stop: 05/03/21 02:28 Last Admin: 05/03/21 02:50 Dose: 10 mg Documented by: Guaifenesin/Codeine Phosphate (Codeine/Guaifenesin 10-100 Mg/5 Ml Syrup 5 Ml Cup) 5 ml PO Q4H PRN PRN Reason: Cough Last Admin: 05/05/21 04:08 Dose: 5 ml Documented by: Remdesivir 200 mg/ Sodium (Chloride) 250 mls @ 250 mls/hr IV ONETIME ONE Stop: 05/03/21 02:27 Last Admin: 05/03/21 03:06 Dose: 250 mls/hr Documented by: Remdesivir 100 mg/ Sodium (Chloride) 100 mls @ 100 mls/hr IV Q24H [facility] Stop: 05/07/21 03:59 Last Admin: 05/07/21 02:17 Dose: 100 mls/hr Documented by: Pantoprazole Sodium 40 mg/ (Sodium Chloride) 10 mls @ 300 mls/hr IV ONETIME ONE Stop: 05/03/21 08:23 Last Admin: 05/03/21 09:25 Dose: 300 mls/hr Documented by: Ibuprofen (Ibuprofen 400 Mg Tab) 400 mg PO ONETIME ONE Stop: 05/03/21 02:29 Last Admin: 05/03/21 02:50 Dose: 400 mg Documented by: Sodium Chloride (Sodium Chloride 0.9% 10 Ml Syringe) 10 ml FLUSH ASDIRECTED PRN PRN Reason: Keep Vein Open Last Admin: 05/03/21 02:12 Dose: 10 ml Documented by: Sodium Chloride (Sodium Chloride 0.9% 2.5 Ml Syringe) 2.5 ml FLUSH ASDIRECTED PRN PRN Reason: Keep Vein Open Last Admin: 05/03/21 02:12 Dose: 2.5 ml Documented by: - Exam Quality Assessment: Supplemental Oxygen General: Alert, Oriented, Mild Distress Lungs: Decreased Breath Sounds, Crackles Cardiovascular: Regular Rate, Regular Rhythm GI/Abdominal Exam: Normal Bowel Sounds, Soft, Non-Tender Extremities: No Pedal Edema. No: Pedal Edema Skin: Warm, Dry - Patient Data Lab Results Last 24 hrs: Laboratory Results - last 24 hr 05/07/21 05/07/21 Range/Units 07:41 07:41 WBC 6.11 (4.0-11.0) K/uL RBC 4.68 (4.30-5.90) M/uL Hgb 13.7 (12.0-16.0) g/dL Hct 40.5 (36.0-46.0) % MCV 86.5 (80.0-98.0) fL MCH 29.3 (27.0-32.0) pg MCHC 33.8 (31.0-37.0) g/dL RDW Std Deviation 45.3 (28.0-62.0) fl RDW Coeff of Yaneth 14 (11.0-15.0) % Plt Count 317 (150-400) K/uL MPV 10.30 (7.40-12.00) fL Neut % (Auto) 70.8 (48.0-80.0) % Lymph % (Auto) 22.9 (16.0-40.0) % [place] % (Auto) 6.1 (0.0-15.0) % Eos % (Auto) 0.0 (0.0-7.0) % Baso % (Auto) 0.2 (0.0-1.5) % Neut # (Auto) 4.3 (1.4-5.7) K/uL Lymph # (Auto) 1.4 (0.6-2.4) K/uL [place] # (Auto) 0.4 (0.0-0.8) K/uL Eos # (Auto) 0.0 (0.0-0.7) K/uL Baso # (Auto) 0.0 (0.0-0.1) K/uL Nucleated RBC % 0.0 /100WBC Nucleated RBCs # 0 K/uL Sodium 136 (136-145) mmol/L Potassium 4.3 (3.5-5.1) mmol/L Chloride 103 (98-107) mmol/L Carbon Dioxide 24.2 (21.0-32.0) mmol/L BUN 18 (7.0-18.0) mg/dL Creatinine 0.8 (0.6-1.0) mg/dL Est Cr Clr Drug Dosing 71.03 mL/min Estimated GFR (MDRD) > 60.0 ml/min Glucose 172 H (74-106) mg/dL Calcium 8.0 L (8.5-10.1) mg/dL Total Bilirubin 0.4 (0.2-1.0) mg/dL AST 20 (15-37) IU/L ALT 47 (14-63) IU/L Alkaline Phosphatase 107 (46-116) U/L Total Protein 6.4 (6.4-8.2) g/dL Albumin 2.8 L (3.4-5.0) g/dL Globulin 3.6 (2.6-4.0) g/dL Albumin/Globulin Ratio 0.8 L (0.9-1.6) Result Diagrams: 05/07/21 07:41 05/07/21 07:41 Sepsis Event Note - Evaluation Sepsis Screening Result: No Definite Risk - Focused Exam Vital Signs: Vital Signs Temp Temp Pulse Resp BP Pulse Ox Pulse Ox 05/07/21 15:14 36.2 C 78 20 173/91 H 94 L 05/07/21 12:59 36.6 C 72 20 120/72 94 L 05/07/21 10:08 90 L 05/07/21 08:00 36.6 C 55 L 16 106/66 97 05/07/21 04:32 36.1 C 61 20 113/73 96 - Problem List Review Problem List Initiated/Reviewed/Updated: Yes - My Orders Last 24 Hours: My Active Orders 05/07/21 15:28 Transfer Patient (Change bed) [ADT] Routine - Plan Plan:: This 50-year-old female admitted with acute hypoxic respiratory failure COVID- 19, viral pneumonia 1. Acute hypoxic respiratory failure, COVID-19 and viral pneumonia -Continues to have hypoxia, but stable on 45L flw and 80-85% FIO2. -Continue remdesivir 100 mg IV daily for total of 4 days -Continue dexamethasone 6 mg p.o. daily until discharge or 10 days -Continue baricitinib -Combivent inhaler every 4 hours -Tessalon Perles or Robitussin with codeine for cough as needed -Encourage I-S, Acapella and proning -Lovenox for DVT prophylaxis -Oxygen to keep sats greater 92% wean as possible -Monitor LFTs while on intensive care therapy -Chest CT was not done due to concerns of patient requiring high flow, will obtain repeat chest x-ray to rule out possible bacterial pneumonia -We will transfer patient to ICU for close monitoring VTE prophylaxis: Lovenox GI prophylaxis: Protonix while on high-dose steroids CODE STATUS: Full code Dispo 2 to 3 days pending improvement.
--- NOTE | 2021-05-07 19:48 | PN ---
THC Physician - Brief Progress [id number]/29/2021 19:31[facility] Hiral Beard, [place] - RUBÉNN (MARZENA) - MWN LEANA RIVERA, Covid +Date of Service 05/07/20 19:31HPI/Events of Note eICU admission [id number] female currently admitted to the ICU for [place] hypoxic respiratory failure secondary to COVID-19. [facility] and was found to be Covid positive and has been on appropriate treatment since that ti la. Patient continues to have progressively worsening hypoxia requiring heated high flow nasal cannu la thus transferred to the ICU for further management. Patient currently on Decadron and baricitinib and has completed a course of remdesivir.Patient seen on camera, sitting up in chair, watching TV at this time without any acute distress or tachypneaVital signs reviewedLabs/EMR reviewedAcute hypoxic respiratory failure-Secondary to COVID-19 infection. -PPE and isolation per institution policy-Agree with Decadron and Barcitinib to complete course. -Recommend self proning as tolerated-Recommend keepi ng patient euvolemic as much as possible. Recommend a trial of diuresis if not already done today.Th ank you for allowing us to participate in the care of this patient. Please do not hesitate to contact eICU for any questions, clarification or assistance with implementation of above.Interventions Major -Hypoxemia - evaluation and management, Infection - evaluation and management, Respiratory failure - evaluation and management
[2021-05-07] MEDS: Melatonin 3 MG Tab PO SCH (21:46)
[2021-05-08] MEDS: Albuterol/Ipratropium 4 GM Inhalation Spray INH SCH ×6 (01:53→21:05)
[2021-05-08] MEDS: Codeine/guaiFENesin 10-100 MG/5 ML Syrup 5 ML Cup PO PRN ×3 (01:53→13:10)
[2021-05-08] MEDS: Pantoprazole 40 MG Tab.CR PO SCH (06:38)
[2021-05-08 06:55] LABS: BLOOD UREA NITROGEN,BUN 17 mg/dL (7.0-18.0); CARBON DIOXIDE,CO2 25.4 mmol/L (21.0-32.0); CHLORIDE,CL 103 mmol/L (98-107); GLUCOSE RANDOM 166 mg/dL (74-106); POTASSIUM,K 4.1 mmol/L (3.5-5.1); SODIUM,NA 137 mmol/L (136-145)
[2021-05-08] MEDS: Benzonatate 100 MG Cap PO PRN ×3 (07:00→22:00)
--- NOTE | 2021-05-08 08:15 | PCM.PN ---
- General Info Date of Service: 05/08/21 Admission Dx/Problem (Free Text): Admission Diagnosis/Problem Admission Diagnosis/Problem Pneumonia Subjective Update: Feeling mildly improved today reports that her appetite has improved but continues to have breathing concerns especially when she is up moving she starts to cough significantly. Denies any other chest pain. Denies abdominal pain. Denies any urinary concerns. Functional Status: Reports: Pain Controlled, Tolerating Diet, Ambulating, Urinating - Review of Systems General: Reports: Weakness, Fatigue, Malaise HEENT: Reports: Sinus Congestion. Denies: Headaches, Sore Throat Pulmonary: Reports: Shortness of Breath, Pleuritic Chest Pain, Cough. Denies: Sputum Cardiovascular: Reports: Dyspnea on Exertion. Denies: Chest Pain Gastrointestinal: Reports: No Symptoms. Denies: Abdominal Pain, Nausea, Vomiting Genitourinary: Reports: No Symptoms. Denies: Dysuria, Frequency, Burning Musculoskeletal: Reports: No Symptoms Skin: Reports: No Symptoms Neurological: Reports: No Symptoms Psychiatric: Reports: No Symptoms - Patient Data Vitals - Most Recent: Last Vital Signs Temp 96.6 F L 05/08/21 05:00 Pulse 59 L 05/08/21 07:00 Resp 24 H 05/08/21 07:00 BP 104/63 05/08/21 07:00 Pulse Ox 91 L 05/08/21 07:00 Weight - Most Recent: 93.349 kg I&O - Last 24 Hours: Intake & Output 05/07/21 05/08/21 05/08/21 22:59 06:59 14:59 Intake Total 1120 1050 Output Total 800 700 Balance 320 350 Lab Results Last 24 Hours: Laboratory Results - last 24 hr 05/07/21 05/08/21 05/08/21 Range/Units 07:41 05:25 05:25 WBC 6.89 (4.0-11.0) K/uL RBC 4.71 (4.30-5.90) M/uL Hgb 13.7 (12.0-16.0) g/dL Hct 40.5 (36.0-46.0) % MCV 86.0 (80.0-98.0) fL MCH 29.1 (27.0-32.0) pg MCHC 33.8 (31.0-37.0) g/dL RDW Std Deviation 44.2 (28.0-62.0) fl RDW Coeff of Yaneth 14 (11.0-15.0) % Plt Count 386 (150-400) K/uL MPV 10.90 (7.40-12.00) fL Neut % (Auto) 75.1 (48.0-80.0) % Lymph % (Auto) 20.0 (16.0-40.0) % Meagher % (Auto) 4.9 (0.0-15.0) % Eos % (Auto) 0.0 (0.0-7.0) % Baso % (Auto) 0.0 (0.0-1.5) % Neut # (Auto) 5.2 (1.4-5.7) K/uL Lymph # (Auto) 1.4 (0.6-2.4) K/uL Meagher # (Auto) 0.3 (0.0-0.8) K/uL Eos # (Auto) 0.0 (0.0-0.7) K/uL Baso # (Auto) 0.0 (0.0-0.1) K/uL Nucleated RBC % 0.0 /100WBC Nucleated RBCs # 0 K/uL Sodium 136 137 (136-145) mmol/L Potassium 4.3 4.1 (3.5-5.1) mmol/L Chloride 103 103 (98-107) mmol/L Carbon Dioxide 24.2 25.4 (21.0-32.0) mmol/L BUN 18 17 (7.0-18.0) mg/dL Creatinine 0.8 0.7 (0.6-1.0) mg/dL Est Cr Clr Drug Dosing 71.03 81.18 mL/min Estimated GFR (MDRD) > 60.0 > 60.0 ml/min Glucose 172 H 166 H (74-106) mg/dL Calcium 8.0 L 8.2 L (8.5-10.1) mg/dL Phosphorus 3.6 (2.6-4.7) mg/dL Magnesium 2.1 (1.8-2.4) mg/dL Total Bilirubin 0.4 0.4 (0.2-1.0) mg/dL AST 20 14 L (15-37) IU/L ALT 47 41 (14-63) IU/L Alkaline Phosphatase 107 101 (46-116) U/L Total Protein 6.4 6.3 L (6.4-8.2) g/dL Albumin 2.8 L 2.8 L (3.4-5.0) g/dL Globulin 3.6 3.5 (2.6-4.0) g/dL Albumin/Globulin Ratio 0.8 L 0.8 L (0.9-1.6) Med Orders - Current: Current Medications Acetaminophen (Acetaminophen 325 Mg Tab) 650 mg PO Q6H PRN PRN Reason: Pain/Fever Last Admin: 05/07/21 00:42 Dose: 650 mg Documented by: Albuterol/Ipratropium (Albuterol/Ipratropium 4 Gm Inhalation [place]) 0 gm INH Q4HRRT [facility] Last Admin: 05/08/21 06:36 Dose: 2 puff Documented by: Benzonatate (Benzonatate 100 Mg Cap) 200 mg PO Q6H PRN PRN Reason: Cough Last Admin: 05/08/21 07:00 Dose: 200 mg Documented by: Dexamethasone (Dexamethasone 4 Mg Tab) 6 mg PO Q24H [facility] Last Admin: 05/07/21 22:20 Dose: 6 mg Documented by: Docusate Sodium (Docusate Sodium 100 Mg Cap) 100 mg PO BID PRN PRN Reason: Constipation Enoxaparin Sodium (Enoxaparin 40 Mg/0.4 Ml Syringe) 40 mg SUBCUT Q24H [facility] [place] Last Admin: 05/07/21 15:08 Dose: 40 mg Documented by: Guaifenesin/Codeine Phosphate (Codeine/Guaifenesin 10-100 Mg/5 Ml Syrup 5 Ml Cup) 10 ml PO Q4H PRN PRN Reason: Cough Last Admin: 05/08/21 01:53 Dose: 10 ml Documented by: Ibuprofen (Ibuprofen 400 Mg Tab) 400 mg PO Q6H PRN PRN Reason: Pain Last Admin: 05/06/21 08:43 Dose: 400 mg Documented by: Melatonin (Melatonin 3 Mg Tab) 6 mg PO BEDTIME [facility] [place] Last Admin: 05/07/21 21:46 Dose: 6 mg Documented by: Ondansetron HCl (Ondansetron 4 Mg/2 Ml Sdv) 4 mg IVPUSH Q4H PRN PRN Reason: Nausea Pantoprazole Sodium (Pantoprazole 40 Mg Tab.Cr) 40 mg PO ACBREAKFAST [facility] Last Admin: 05/08/21 06:38 Dose: 40 mg Documented by: Sodium Chloride (Sodium Chloride 0.9% 2.5 Ml Syringe) 2.5 ml FLUSH ASDIRECTED PRN PRN Reason: Keep Vein Open Last Admin: 05/07/21 10:16 Dose: 2.5 ml Documented by: Discontinued Medications Albuterol (Albuterol 8 Gm Inhaler) 8 gm INH ONETIME STA Stop: 05/03/21 01:38 Last Admin: 05/03/21 02:06 Dose: 90 mcg Documented by: Benzonatate (Benzonatate 100 Mg Cap) 200 mg PO ONETIME ONE Stop: 05/03/21 01:38 Last Admin: 05/03/21 02:11 Dose: 200 mg Documented by: Benzonatate (Benzonatate 100 Mg Cap) 100 mg PO Q6H PRN PRN Reason: Cough Last Admin: 05/05/21 06:20 Dose: 100 mg Documented by: Dexamethasone (Dexamethasone 10 Mg/Ml Sdv) 10 mg IVPUSH ONETIME ONE Stop: 05/03/21 02:28 Last Admin: 05/03/21 02:50 Dose: 10 mg Documented by: Guaifenesin/Codeine Phosphate (Codeine/Guaifenesin 10-100 Mg/5 Ml Syrup 5 Ml Cup) 5 ml PO Q4H PRN PRN Reason: Cough Last Admin: 05/05/21 04:08 Dose: 5 ml Documented by: Remdesivir 200 mg/ Sodium (Chloride) 250 mls @ 250 mls/hr IV ONETIME ONE Stop: 05/03/21 02:27 Last Admin: 05/03/21 03:06 Dose: 250 mls/hr Documented by: Remdesivir 100 mg/ Sodium (Chloride) 100 mls @ 100 mls/hr IV Q24H [facility] Stop: 05/07/21 03:59 Last Admin: 05/07/21 02:17 Dose: 100 mls/hr Documented by: Pantoprazole Sodium 40 mg/ (Sodium Chloride) 10 mls @ 300 mls/hr IV ONETIME ONE Stop: 05/03/21 08:23 Last Admin: 05/03/21 09:25 Dose: 300 mls/hr Documented by: Ibuprofen (Ibuprofen 400 Mg Tab) 400 mg PO ONETIME ONE Stop: 05/03/21 02:29 Last Admin: 05/03/21 02:50 Dose: 400 mg Documented by: Sodium Chloride (Sodium Chloride 0.9% 10 Ml Syringe) 10 ml FLUSH ASDIRECTED PRN PRN Reason: Keep Vein Open Last Admin: 05/03/21 02:12 Dose: 10 ml Documented by: Sodium Chloride (Sodium Chloride 0.9% 2.5 Ml Syringe) 2.5 ml FLUSH ASDIRECTED PRN PRN Reason: Keep Vein Open Last Admin: 05/03/21 02:12 Dose: 2.5 ml Documented by: - Exam Quality Assessment: Supplemental Oxygen (Continues to be on heated high flow, oxygen needs are decreasing steadily) General: Alert, Oriented, Cooperative, No Acute Distress Lungs: Decreased Breath Sounds (Bibasilar with fine crackles), Crackles. No: Normal Respiratory Effort (With exertion having increased dyspnea) Cardiovascular: Regular Rate, Regular Rhythm GI/Abdominal Exam: Normal Bowel Sounds, Soft, Non-Tender Extremities: Normal Inspection, Normal Range of Motion, Non-Tender, No Pedal Edema, Normal Capillary Refill Skin: Warm, Dry, Intact Neurological: No New Focal Deficit Psy/Mental Status: Alert, Normal Affect, Normal Mood - Patient Data Lab Results Last 24 hrs: Laboratory Results - last 24 hr 05/07/21 05/08/21 05/08/21 Range/Units 07:41 05:25 05:25 WBC 6.89 (4.0-11.0) K/uL RBC 4.71 (4.30-5.90) M/uL Hgb 13.7 (12.0-16.0) g/dL Hct 40.5 (36.0-46.0) % MCV 86.0 (80.0-98.0) fL MCH 29.1 (27.0-32.0) pg MCHC 33.8 (31.0-37.0) g/dL RDW Std Deviation 44.2 (28.0-62.0) fl RDW Coeff of Yaneth 14 (11.0-15.0) % Plt Count 386 (150-400) K/uL MPV 10.90 (7.40-12.00) fL Neut % (Auto) 75.1 (48.0-80.0) % Lymph % (Auto) 20.0 (16.0-40.0) % Meagher % (Auto) 4.9 (0.0-15.0) % Eos % (Auto) 0.0 (0.0-7.0) % Baso % (Auto) 0.0 (0.0-1.5) % Neut # (Auto) 5.2 (1.4-5.7) K/uL Lymph # (Auto) 1.4 (0.6-2.4) K/uL Meagher # (Auto) 0.3 (0.0-0.8) K/uL Eos # (Auto) 0.0 (0.0-0.7) K/uL Baso # (Auto) 0.0 (0.0-0.1) K/uL Nucleated RBC % 0.0 /100WBC Nucleated RBCs # 0 K/uL Sodium 136 137 (136-145) mmol/L Potassium 4.3 4.1 (3.5-5.1) mmol/L Chloride 103 103 (98-107) mmol/L Carbon Dioxide 24.2 25.4 (21.0-32.0) mmol/L BUN 18 17 (7.0-18.0) mg/dL Creatinine 0.8 0.7 (0.6-1.0) mg/dL Est Cr Clr Drug Dosing 71.03 81.18 mL/min Estimated GFR (MDRD) > 60.0 > 60.0 ml/min Glucose 172 H 166 H (74-106) mg/dL Calcium 8.0 L 8.2 L (8.5-10.1) mg/dL Phosphorus 3.6 (2.6-4.7) mg/dL Magnesium 2.1 (1.8-2.4) mg/dL Total Bilirubin 0.4 0.4 (0.2-1.0) mg/dL AST 20 14 L (15-37) IU/L ALT 47 41 (14-63) IU/L Alkaline Phosphatase 107 101 (46-116) U/L Total Protein 6.4 6.3 L (6.4-8.2) g/dL Albumin 2.8 L 2.8 L (3.4-5.0) g/dL Globulin 3.6 3.5 (2.6-4.0) g/dL Albumin/Globulin Ratio 0.8 L 0.8 L (0.9-1.6) Result Diagrams: 05/08/21 05:25 05/08/21 05:25 Sepsis Event Note - Evaluation Sepsis Screening Result: No Definite Risk - Focused Exam Vital Signs: Vital Signs Temp Pulse Resp BP Pulse Ox 05/08/21 07:00 59 L 24 H 104/63 91 L 05/08/21 06:00 58 L 19 107/65 92 L 05/08/21 05:30 17 95 05/08/21 05:00 96.6 F L 65 19 123/78 96 05/08/21 04:00 58 L 16 100/54 L 94 L 05/08/21 03:00 56 L 16 91/50 L 95 05/08/21 02:00 70 18 96/53 L 92 L 05/08/21 01:00 68 24 H 113/68 96 05/08/21 00:00 62 25 H 105/62 91 L 05/07/21 23:00 96.6 F L 56 L 21 H 120/72 99 05/07/21 22:00 97.0 F 68 16 112/71 92 L 05/07/21 21:00 96.6 F L 63 26 H 109/71 93 L - Problem List & Annotations (1) Acute respiratory failure with hypoxia SNOMED Code(s): 78264015, 774546132 Code(s): J96.01 - ACUTE RESPIRATORY FAILURE WITH HYPOXIA Status: Acute Current Visit: Yes (2) COVID-19 SNOMED Code(s): 886636271 Code(s): U07.1 - COVID-19 Status: Acute Current Visit: Yes (3) Viral pneumonia SNOMED Code(s): 30198510 Code(s): J12.9 - VIRAL PNEUMONIA, UNSPECIFIED Status: Acute Current Visit: Yes (4) Obesity SNOMED Code(s): 196752317, 864947148 Code(s): E66.9 - OBESITY, UNSPECIFIED Status: Chronic Current Visit: Yes (5) Migraine SNOMED Code(s): 75666701 Code(s): G43.909 - MIGRAINE, UNSP, NOT INTRACTABLE, WITHOUT STATUS MIGRAINOSUS Status: Chronic Current Visit: No - Problem List Review Problem List Initiated/Reviewed/Updated: Yes - Plan Plan:: This 50-year-old female admitted with acute hypoxic respiratory failure COVID- 19, viral pneumonia 1. Acute hypoxic respiratory failure, COVID-19 and viral pneumonia -Mild improvement from following day but stable on 40 L flow 60% FiO2 -Completed remdesivir course x5 days -Continue dexamethasone 6 mg p.o. daily today day 6 of 10 -Continue baricitinib p.o. daily -Combivent inhaler every 4 hours -Tessalon Perles or Robitussin with codeine for cough as needed -Encourage I-S, Acapella and proning -Lovenox for DVT prophylaxis -Oxygen to keep sats greater 92% wean as possible -Monitor LFTs while on intensive care therapy -Chest x-ray shows improving infectious/inflammatory process from COVID-19 continue to monitor, no signs of possible bacterial infiltrates. -Give 1 dose IV Lasix 20 mg will monitor improvement with oxygenation after mild diuresis. VTE prophylaxis: Lovenox GI prophylaxis: Protonix while on high-dose steroids CODE STATUS: Full code Dispo 2 to 3 days pending improvement.
[2021-05-08] MEDS ORDERED: Furosemide 20 MG/2 ML VIAL IVPUSH ONE (09:42)
[2021-05-08] MEDS: Enoxaparin 40 MG/0.4 ML Syringe SUBCUT SCH (11:01)
[2021-05-08] MEDS: Codeine/guaiFENesin 10-100 MG/5 ML Syrup 5 ML Cup PO SCH ×2 (17:17→21:06)
[2021-05-08] MEDS: Melatonin 3 MG Tab PO SCH (21:03)
[2021-05-08] MEDS: Dexamethasone 4 MG Tab PO SCH (22:01)
[2021-05-09] MEDS: Albuterol/Ipratropium 4 GM Inhalation Spray INH SCH ×6 (01:00→21:30)
[2021-05-09] MEDS: Codeine/guaiFENesin 10-100 MG/5 ML Syrup 5 ML Cup PO SCH ×6 (01:00→21:30)
[2021-05-09] MEDS: Benzonatate 100 MG Cap PO PRN ×2 (05:16→21:29)
[2021-05-09 06:28] LABS: BLOOD UREA NITROGEN,BUN 20 mg/dL (7.0-18.0); CARBON DIOXIDE,CO2 26.4 mmol/L (21.0-32.0); CHLORIDE,CL 100 mmol/L (98-107); GLUCOSE RANDOM 165 mg/dL (74-106); POTASSIUM,K 4.2 mmol/L (3.5-5.1); SODIUM,NA 138 mmol/L (136-145)
--- NOTE | 2021-05-09 07:49 | PCM.PN ---
- General Info Date of Service: 05/09/21 Admission Dx/Problem (Free Text): Admission Diagnosis/Problem Admission Diagnosis/Problem Pneumonia Subjective Update: Patient reports she is feeling improved today little bit more energy continues to have cough that is exhausting. Sitting on the chair ready for breakfast. Feels constipated and bloated would like something to help with this. She otherwise is eating and drinking well and feeling slightly improved. Continues to have steady slow decrease in oxygenation needs. Functional Status: Reports: Pain Controlled, Tolerating Diet, Ambulating, Urinating - Review of Systems General: Reports: Weakness, Fatigue, Malaise HEENT: Denies: Headaches, Sinus Congestion Pulmonary: Reports: Shortness of Breath, Cough. Denies: Pleuritic Chest Pain, Sputum, Wheezing Cardiovascular: Reports: Dyspnea on Exertion. Denies: Chest Pain Gastrointestinal: Reports: Constipation, Flatus. Denies: Abdominal Pain, Nausea, Vomiting Genitourinary: Reports: No Symptoms. Denies: Dysuria, Frequency, Burning Musculoskeletal: Reports: No Symptoms Skin: Reports: No Symptoms Neurological: Reports: No Symptoms Psychiatric: Reports: No Symptoms - Patient Data Vitals - Most Recent: Last Vital Signs Temp 97.1 F 05/09/21 04:00 Pulse 55 L 05/09/21 07:00 Resp 17 05/09/21 07:00 BP 100/58 L 05/09/21 07:00 Pulse Ox 96 05/09/21 07:00 Weight - Most Recent: 93.349 kg I&O - Last 24 Hours: Intake & Output 05/08/21 05/09/21 05/09/21 22:59 06:59 14:59 Intake Total 1100 Balance 1100 Lab Results Last 24 Hours: Laboratory Results - last 24 hr 05/09/21 05/09/21 Range/Units 04:55 04:55 WBC 8.53 (4.0-11.0) K/uL RBC 4.92 (4.30-5.90) M/uL Hgb 14.5 (12.0-16.0) g/dL Hct 42.0 (36.0-46.0) % MCV 85.4 (80.0-98.0) fL MCH 29.5 (27.0-32.0) pg MCHC 34.5 (31.0-37.0) g/dL RDW Std Deviation 43.7 (28.0-62.0) fl RDW Coeff of Yaneth 14 (11.0-15.0) % Plt Count 451 H (150-400) K/uL MPV 10.50 (7.40-12.00) fL Neut % (Auto) 82.4 H (48.0-80.0) % Lymph % (Auto) 12.9 L (16.0-40.0) % [place] % (Auto) 4.6 (0.0-15.0) % Eos % (Auto) 0.0 (0.0-7.0) % Baso % (Auto) 0.1 (0.0-1.5) % Neut # (Auto) 7.0 H (1.4-5.7) K/uL Lymph # (Auto) 1.1 (0.6-2.4) K/uL [place] # (Auto) 0.4 (0.0-0.8) K/uL Eos # (Auto) 0.0 (0.0-0.7) K/uL Baso # (Auto) 0.0 (0.0-0.1) K/uL Nucleated RBC % 0.0 /100WBC Nucleated RBCs # 0 K/uL Sodium 138 (136-145) mmol/L Potassium 4.2 (3.5-5.1) mmol/L Chloride 100 (98-107) mmol/L Carbon Dioxide 26.4 (21.0-32.0) mmol/L BUN 20 H (7.0-18.0) mg/dL Creatinine 0.8 (0.6-1.0) mg/dL Est Cr Clr Drug Dosing 71.03 mL/min Estimated GFR (MDRD) > 60.0 ml/min Glucose 165 H (74-106) mg/dL Calcium 8.5 (8.5-10.1) mg/dL Total Bilirubin 0.6 (0.2-1.0) mg/dL AST 12 L (15-37) IU/L ALT 36 (14-63) IU/L Alkaline Phosphatase 105 (46-116) U/L Total Protein 6.4 (6.4-8.2) g/dL Albumin 2.9 L (3.4-5.0) g/dL Globulin 3.5 (2.6-4.0) g/dL Albumin/Globulin Ratio 0.8 L (0.9-1.6) Med Orders - Current: Current Medications Acetaminophen (Acetaminophen 325 Mg Tab) 650 mg PO Q6H PRN PRN Reason: Pain/Fever Last Admin: 05/07/21 00:42 Dose: 650 mg Documented by: Albuterol/Ipratropium (Albuterol/Ipratropium 4 Gm Inhalation [place]) 0 gm INH Q4HRRT [facility] Last Admin: 05/09/21 05:16 Dose: 2 puff Documented by: Benzonatate (Benzonatate 100 Mg Cap) 200 mg PO Q6H PRN PRN Reason: Cough Last Admin: 05/09/21 05:16 Dose: 200 mg Documented by: Dexamethasone (Dexamethasone 4 Mg Tab) 6 mg PO Q24H [facility] Last Admin: 05/08/21 22:01 Dose: 6 mg Documented by: Docusate Sodium (Docusate Sodium 100 Mg Cap) 100 mg PO BID PRN PRN Reason: Constipation Enoxaparin Sodium (Enoxaparin 40 Mg/0.4 Ml Syringe) 40 mg SUBCUT Q24H [facility] Last Admin: 05/08/21 11:01 Dose: 40 mg Documented by: Guaifenesin/Codeine Phosphate (Codeine/Guaifenesin 10-100 Mg/5 Ml Syrup 5 Ml Cu p) 10 ml PO Q4H [facility] Last Admin: 05/09/21 05:15 Dose: 10 ml Documented by: Ibuprofen (Ibuprofen 400 Mg Tab) 400 mg PO Q6H PRN PRN Reason: Pain Last Admin: 05/06/21 08:43 Dose: 400 mg Documented by: Melatonin (Melatonin 3 Mg Tab) 6 mg PO BEDTIME [facility] Last Admin: 05/08/21 21:03 Dose: 6 mg Documented by: Ondansetron HCl (Ondansetron 4 Mg/2 Ml Sdv) 4 mg IVPUSH Q4H PRN PRN Reason: Nausea Pantoprazole Sodium (Pantoprazole 40 Mg Tab.Cr) 40 mg PO ACBREAKFAST [facility] Last Admin: 05/08/21 06:38 Dose: 40 mg Documented by: Sodium Chloride (Sodium Chloride 0.9% 2.5 Ml Syringe) 2.5 ml FLUSH ASDIRECTED PRN PRN Reason: Keep Vein Open Last Admin: 05/07/21 10:16 Dose: 2.5 ml Documented by: Discontinued Medications Albuterol (Albuterol 8 Gm Inhaler) 8 gm INH ONETIME STA Stop: 05/03/21 01:38 Last Admin: 05/03/21 02:06 Dose: 90 mcg Documented by: Benzonatate (Benzonatate 100 Mg Cap) 200 mg PO ONETIME ONE Stop: 05/03/21 01:38 Last Admin: 05/03/21 02:11 Dose: 200 mg Documented by: Benzonatate (Benzonatate 100 Mg Cap) 100 mg PO Q6H PRN PRN Reason: Cough Last Admin: 05/05/21 06:20 Dose: 100 mg Documented by: Dexamethasone (Dexamethasone 10 Mg/Ml Sdv) 10 mg IVPUSH ONETIME ONE Stop: 05/03/21 02:28 Last Admin: 05/03/21 02:50 Dose: 10 mg Documented by: Furosemide (Furosemide 20 Mg/2 Ml Vial) 20 mg IVPUSH ONETIME ONE Stop: 05/08/21 09:43 Last Admin: 05/08/21 10:06 Dose: 20 mg Documented by: Guaifenesin/Codeine Phosphate (Codeine/Guaifenesin 10-100 Mg/5 Ml Syrup 5 Ml Cup) 5 ml PO Q4H PRN PRN Reason: Cough Last Admin: 05/05/21 04:08 Dose: 5 ml Documented by: Guaifenesin/Codeine Phosphate (Codeine/Guaifenesin 10-100 Mg/5 Ml Syrup 5 Ml Cup) 10 ml PO Q4H PRN PRN Reason: Cough Last Admin: 05/08/21 13:10 Dose: 10 ml Documented by: Remdesivir 200 mg/ Sodium (Chloride) 250 mls @ 250 mls/hr IV ONETIME ONE Stop: 05/03/21 02:27 Last Admin: 05/03/21 03:06 Dose: 250 mls/hr Documented by: Remdesivir 100 mg/ Sodium (Chloride) 100 mls @ 100 mls/hr IV Q24H [facility] Stop: 05/07/21 03:59 Last Admin: 05/07/21 02:17 Dose: 100 mls/hr Documented by: Pantoprazole Sodium 40 mg/ (Sodium Chloride) 10 mls @ 300 mls/hr IV ONETIME ONE Stop: 05/03/21 08:23 Last Admin: 05/03/21 09:25 Dose: 300 mls/hr Documented by: Ibuprofen (Ibuprofen 400 Mg Tab) 400 mg PO ONETIME ONE Stop: 05/03/21 02:29 Last Admin: 05/03/21 02:50 Dose: 400 mg Documented by: Sodium Chloride (Sodium Chloride 0.9% 10 Ml Syringe) 10 ml FLUSH ASDIRECTED PRN PRN Reason: Keep Vein Open Last Admin: 05/03/21 02:12 Dose: 10 ml Documented by: Sodium Chloride (Sodium Chloride 0.9% 2.5 Ml Syringe) 2.5 ml FLUSH ASDIRECTED PRN PRN Reason: Keep Vein Open Last Admin: 05/03/21 02:12 Dose: 2.5 ml Documented by: - Exam Quality Assessment: Supplemental Oxygen (Remains on 30 L flow 60% FiO2.), DVT Prophylaxis General: Alert, Oriented, Cooperative Lungs: Decreased Breath Sounds (Bibasilar but steadily improving). No: Normal Respiratory Effort (Dyspnea with speech) Cardiovascular: Regular Rate, Regular Rhythm GI/Abdominal Exam: Normal Bowel Sounds, Soft, Non-Tender Back Exam: Normal Inspection, Full Range of Motion Extremities: Normal Inspection, Normal Range of Motion, Non-Tender, No Pedal Edema Neurological: No New Focal Deficit Psy/Mental Status: Alert, Normal Affect, Normal Mood - Patient Data Lab Results Last 24 hrs: Laboratory Results - last 24 hr 05/09/21 05/09/21 Range/Units 04:55 04:55 WBC 8.53 (4.0-11.0) K/uL RBC 4.92 (4.30-5.90) M/uL Hgb 14.5 (12.0-16.0) g/dL Hct 42.0 (36.0-46.0) % MCV 85.4 (80.0-98.0) fL MCH 29.5 (27.0-32.0) pg MCHC 34.5 (31.0-37.0) g/dL RDW Std Deviation 43.7 (28.0-62.0) fl RDW Coeff of Yaneth 14 (11.0-15.0) % Plt Count 451 H (150-400) K/uL MPV 10.50 (7.40-12.00) fL Neut % (Auto) 82.4 H (48.0-80.0) % Lymph % (Auto) 12.9 L (16.0-40.0) % [place] % (Auto) 4.6 (0.0-15.0) % Eos % (Auto) 0.0 (0.0-7.0) % Baso % (Auto) 0.1 (0.0-1.5) % Neut # (Auto) 7.0 H (1.4-5.7) K/uL Lymph # (Auto) 1.1 (0.6-2.4) K/uL [place] # (Auto) 0.4 (0.0-0.8) K/uL Eos # (Auto) 0.0 (0.0-0.7) K/uL Baso # (Auto) 0.0 (0.0-0.1) K/uL Nucleated RBC % 0.0 /100WBC Nucleated RBCs # 0 K/uL Sodium 138 (136-145) mmol/L Potassium 4.2 (3.5-5.1) mmol/L Chloride 100 (98-107) mmol/L Carbon Dioxide 26.4 (21.0-32.0) mmol/L BUN 20 H (7.0-18.0) mg/dL Creatinine 0.8 (0.6-1.0) mg/dL Est Cr Clr Drug Dosing 71.03 mL/min Estimated GFR (MDRD) > 60.0 ml/min Glucose 165 H (74-106) mg/dL Calcium 8.5 (8.5-10.1) mg/dL Total Bilirubin 0.6 (0.2-1.0) mg/dL AST 12 L (15-37) IU/L ALT 36 (14-63) IU/L Alkaline Phosphatase 105 (46-116) U/L Total Protein 6.4 (6.4-8.2) g/dL Albumin 2.9 L (3.4-5.0) g/dL Globulin 3.5 (2.6-4.0) g/dL Albumin/Globulin Ratio 0.8 L (0.9-1.6) Result Diagrams: 05/09/21 04:55 05/09/21 04:55 Sepsis Event Note - Evaluation Sepsis Screening Result: No Definite Risk - Focused Exam Vital Signs: Vital Signs Temp Pulse Resp BP Pulse Ox 05/09/21 07:00 55 L 17 100/58 L 96 08/31/21 06:00 56 L 16 97/57 L 95 05/09/21 05:00 61 18 112/71 95 05/09/21 04:00 97.1 F 54 L 17 127/74 94 L 05/09/21 03:00 58 L 16 111/68 93 L 05/09/21 02:00 61 17 100/63 95 05/09/21 01:00 59 L 18 102/60 93 L 05/09/21 00:00 97.0 F 58 L 17 149/87 H 92 L 05/08/21 23:00 72 18 132/87 95 05/08/21 22:00 72 18 145/78 H 96 05/08/21 21:00 61 20 106/67 95 05/08/21 20:00 96.9 F 73 24 H 103/72 94 L - Problem List & Annotations (1) Acute respiratory failure with hypoxia SNOMED Code(s): 87094897, 570396557 Code(s): J96.01 - ACUTE RESPIRATORY FAILURE WITH HYPOXIA Status: Acute Current Visit: Yes (2) COVID-19 SNOMED Code(s): 785798880 Code(s): U07.1 - COVID-19 Status: Acute Current Visit: Yes (3) Viral pneumonia SNOMED Code(s): 00833620 Code(s): J12.9 - VIRAL PNEUMONIA, UNSPECIFIED Status: Acute Current Visit: Yes (4) Obesity SNOMED Code(s): 833143663, 941243290 Code(s): E66.9 - OBESITY, UNSPECIFIED Status: Chronic Current Visit: Yes (5) Migraine SNOMED Code(s): 33043338 Code(s): G43.909 - MIGRAINE, UNSP, NOT INTRACTABLE, WITHOUT STATUS MIGRAINOSUS Status: Chronic Current Visit: No - Problem List Review Problem List Initiated/Reviewed/Updated: Yes - My Orders Last 24 Hours: My Active Orders 05/10/21 05:11 CBC WITH AUTO DIFF [HEME] AM COMPREHENSIVE METABOLIC PN,CMP [CHEM] AM 05/11/21 05:11 CBC WITH AUTO DIFF [HEME] AM COMPREHENSIVE METABOLIC PN,CMP [CHEM] AM 05/12/21 05:11 CBC WITH AUTO DIFF [HEME] AM COMPREHENSIVE METABOLIC PN,CMP [CHEM] AM 05/13/21 05:11 CBC WITH AUTO DIFF [HEME] AM COMPREHENSIVE METABOLIC PN,CMP [CHEM] AM - Plan Plan:: This 50-year-old female admitted with acute hypoxic respiratory failure COVID- 19, viral pneumonia 1. Acute hypoxic respiratory failure, COVID-19 and viral pneumonia -Slow improvement from following day but stable on 35 L flow 60% FiO2 -Completed remdesivir course x5 days -Continue dexamethasone 6 mg p.o. daily today day 7 of 10 -Continue baricitinib p.o. daily -Combivent inhaler every 4 hours -Tessalon Perles or Robitussin with codeine for cough as needed -Encourage I-S, Acapella and proning -Lovenox for DVT prophylaxis -Oxygen to keep sats greater 92% wean as possible -Monitor LFTs while on intensive care therapy -Chest x-ray shows improving infectious/inflammatory process from COVID-19 continue to monitor, no signs of possible bacterial infiltrates. VTE prophylaxis: Lovenox GI prophylaxis: Protonix while on high-dose steroids CODE STATUS: Full code Dispo 2 to 3 days pending improvement.
[2021-05-09] MEDS: Pantoprazole 40 MG Tab.CR PO SCH (08:04)
[2021-05-09] MEDS ORDERED: Bisacodyl 10 MG Supp RECTAL PRN (08:45)
[2021-05-09] MEDS: Docusate Sodium 100 MG Cap PO PRN ×2 (09:46→21:29)
[2021-05-09] MEDS: Sennosides 8.6 MG Tab PO PRN ×2 (09:46→15:04)
[2021-05-09] MEDS: Enoxaparin 40 MG/0.4 ML Syringe SUBCUT SCH (12:45)
[2021-05-09] MEDS: Melatonin 3 MG Tab PO SCH (21:29)
[2021-05-09] MEDS: Dexamethasone 4 MG Tab PO SCH (22:22)
[2021-05-10] MEDS: Albuterol/Ipratropium 4 GM Inhalation Spray INH SCH ×6 (02:00→21:18)
[2021-05-10] MEDS: Codeine/guaiFENesin 10-100 MG/5 ML Syrup 5 ML Cup PO SCH ×6 (03:30→21:16)
[2021-05-10 06:39] LABS: BLOOD UREA NITROGEN,BUN 20 mg/dL (7.0-18.0); CARBON DIOXIDE,CO2 21.7 mmol/L (21.0-32.0); CHLORIDE,CL 101 mmol/L (98-107); GLUCOSE RANDOM 191 mg/dL (74-106); POTASSIUM,K 3.9 mmol/L (3.5-5.1); SODIUM,NA 135 mmol/L (136-145)
[2021-05-10] MEDS: Pantoprazole 40 MG Tab.CR PO SCH (07:30)
--- NOTE | 2021-05-10 08:04 | PCM.PN ---
- General Info Date of Service: 05/10/21 Admission Dx/Problem (Free Text): Admission Diagnosis/Problem Admission Diagnosis/Problem Pneumonia Subjective Update: Continues to feel improved daily. Denies any chest pain. Reports coughing is improving slightly. Continues to have constipation and would like suppository today. Eating and drinking appropriately. Tolerating regular nasal cannula well. Shortness of breath also improving. No other concerns besides co nstipation today Functional Status: Reports: Pain Controlled, Tolerating Diet, Ambulating, Urinating - Review of Systems General: Reports: Fatigue, Malaise HEENT: Reports: No Symptoms. Denies: Headaches, Sore Throat Pulmonary: Reports: Shortness of Breath (Improving), Cough Cardiovascular: Reports: Dyspnea on Exertion Gastrointestinal: Reports: Constipation. Denies: Nausea, Vomiting Genitourinary: Reports: No Symptoms. Denies: Dysuria, Frequency, Burning Musculoskeletal: Reports: No Symptoms Skin: Reports: No Symptoms Neurological: Reports: No Symptoms Psychiatric: Reports: No Symptoms - Patient Data Vitals - Most Recent: Last Vital Signs Temp 97.3 F 05/10/21 04:00 Pulse 55 L 05/09/21 07:00 Resp 18 05/10/21 07:00 BP 122/82 05/10/21 07:00 Pulse Ox 94 L 05/10/21 07:00 Weight - Most Recent: 93.349 kg I&O - Last 24 Hours: Intake & Output 05/09/21 05/10/21 05/10/21 22:59 06:59 14:59 Intake Total 1480 500 Output Total 0 Balance 1480 500 Lab Results Last 24 Hours: Laboratory Results - last 24 hr 05/10/21 05/10/21 Range/Units 05:27 05:27 WBC 6.07 (4.0-11.0) K/uL RBC 4.74 (4.30-5.90) M/uL Hgb 14.1 (12.0-16.0) g/dL Hct 40.6 (36.0-46.0) % MCV 85.7 (80.0-98.0) fL MCH 29.7 (27.0-32.0) pg MCHC 34.7 (31.0-37.0) g/dL RDW Std Deviation 44.3 (28.0-62.0) fl RDW Coeff of Yan[place] 14 (11.0-15.0) % Plt Count 472 H (150-400) K/uL MPV 10.80 (7.40-12.00) fL Neut % (Auto) 76.7 (48.0-80.0) % Lymph % (Auto) 16.5 (16.0-40.0) % [place] % (Auto) 6.8 (0.0-15.0) % Eos % (Auto) 0.0 (0.0-7.0) % Baso % (Auto) 0.0 (0.0-1.5) % Neut # (Auto) 4.7 (1.4-5.7) K/uL Lymph # (Auto) 1.0 (0.6-2.4) K/uL [place] # (Auto) 0.4 (0.0-0.8) K/uL Eos # (Auto) 0.0 (0.0-0.7) K/uL Baso # (Auto) 0.0 (0.0-0.1) K/uL Nucleated RBC % 0.0 /100WBC Nucleated RBCs # 0 K/uL Sodium 135 L (136-145) mmol/L Potassium 3.9 (3.5-5.1) mmol/L Chloride 101 (98-107) mmol/L Carbon Dioxide 21.7 (21.0-32.0) mmol/L BUN 20 H (7.0-18.0) mg/dL Creatinine 0.9 (0.6-1.0) mg/dL Est Cr Clr Drug Dosing 63.14 mL/min Estimated GFR (MDRD) > 60.0 ml/min Glucose 191 H (74-106) mg/dL Calcium 8.1 L (8.5-10.1) mg/dL Total Bilirubin 0.5 (0.2-1.0) mg/dL AST 8 L (15-37) IU/L ALT 32 (14-63) IU/L Alkaline Phosphatase 101 (46-116) U/L Total Protein 6.4 (6.4-8.2) g/dL Albumin 2.8 L (3.4-5.0) g/dL Globulin 3.6 (2.6-4.0) g/dL Albumin/Globulin Ratio 0.8 L (0.9-1.6) Med Orders - Current: Current Medications Acetaminophen (Acetaminophen 325 Mg Tab) 650 mg PO Q6H PRN PRN Reason: Pain/Fever Last Admin: 05/07/21 00:42 Dose: 650 mg Documented by: Albuterol/Ipratropium (Albuterol/Ipratropium 4 Gm Inhalation [place]) 0 gm INH Q4HRRT [facility] Last Admin: 05/10/21 05:18 Dose: 2 puff Documented by: Benzonatate (Benzonatate 100 Mg Cap) 200 mg PO Q6H PRN PRN Reason: Cough Last Admin: 05/09/21 21:29 Dose: 200 mg Documented by: Bisacodyl (Bisacodyl 10 Mg Supp) 10 mg RECTAL DAILY PRN PRN Reason: Constipation Dexamethasone (Dexamethasone 4 Mg Tab) 6 mg PO Q24H [facility] Last Admin: 05/09/21 22:22 Dose: 6 mg Documented by: Docusate Sodium (Docusate Sodium 100 Mg Cap) 100 mg PO BID PRN PRN Reason: Constipation Last Admin: 05/09/21 21:29 Dose: 100 mg Documented by: Enoxaparin Sodium (Enoxaparin 40 Mg/0.4 Ml Syringe) 40 mg SUBCUT Q24H [facility] Last Admin: 05/09/21 12:45 Dose: 40 mg Documented by: Guaifenesin/Codeine Phosphate (Codeine/Guaifenesin 10-100 Mg/5 Ml Syrup 5 Ml Cup) 10 ml PO Q4H [facility] Last Admin: 05/10/21 05:18 Dose: 10 ml Documented by: Ibuprofen (Ibuprofen 400 Mg Tab) 400 mg PO Q6H PRN PRN Reason: Pain Last Admin: 05/06/21 08:43 Dose: 400 mg Documented by: Melatonin (Melatonin 3 Mg Tab) 6 mg PO BEDTIME [facility] Last Admin: 05/09/21 21:29 Dose: 6 mg Documented by: Ondansetron HCl (Ondansetron 4 Mg/2 Ml Sdv) 4 mg IVPUSH Q4H PRN PRN Reason: Nausea Pantoprazole Sodium (Pantoprazole 40 Mg Tab.Cr) 40 mg PO ACBREAKFAST [facility] Last Admin: 05/10/21 07:30 Dose: 40 mg Documented by: Senna (Sennosides 8.6 Mg Tab) 8.6 mg PO Q12H PRN PRN Reason: Constipation Last Admin: 05/09/21 15:04 Dose: 8.6 mg Documented by: Sodium Chloride (Sodium Chloride 0.9% 2.5 Ml Syringe) 2.5 ml FLUSH ASDIRECTED P RN PRN Reason: Keep Vein Open Last Admin: 05/07/21 10:16 Dose: 2.5 ml Documented by: Discontinued Medications Albuterol (Albuterol 8 Gm Inhaler) 8 gm INH ONETIME STA Stop: 05/03/21 01:38 Last Admin: 05/03/21 02:06 Dose: 90 mcg Documented by: Benzonatate (Benzonatate 100 Mg Cap) 200 mg PO ONETIME ONE Stop: 05/03/21 01:38 Last Admin: 05/03/21 02:11 Dose: 200 mg Documented by: Benzonatate (Benzonatate 100 Mg Cap) 100 mg PO Q6H PRN PRN Reason: Cough Last Admin: 05/05/21 06:20 Dose: 100 mg Documented by: Dexamethasone (Dexamethasone 10 Mg/Ml Sdv) 10 mg IVPUSH ONETIME ONE Stop: 05/03/21 02:28 Last Admin: 05/03/21 02:50 Dose: 10 mg Documented by: Furosemide (Furosemide 20 Mg/2 Ml Vial) 20 mg IVPUSH ONETIME ONE Stop: 05/08/21 09:43 Last Admin: 05/08/21 10:06 Dose: 20 mg Documented by: Guaifenesin/Codeine Phosphate (Codeine/Guaifenesin 10-100 Mg/5 Ml Syrup 5 Ml Cup) 5 ml PO Q4H PRN PRN Reason: Cough Last Admin: 05/05/21 04:08 Dose: 5 ml Documented by: Guaifenesin/Codeine Phosphate (Codeine/Guaifenesin 10-100 Mg/5 Ml Syrup 5 Ml Cup) 10 ml PO Q4H PRN PRN Reason: Cough Last Admin: 05/08/21 13:10 Dose: 10 ml Documented by: Remdesivir 200 mg/ Sodium (Chloride) 250 mls @ 250 mls/hr IV ONETIME ONE Stop: 05/03/21 02:27 Last Admin: 05/03/21 03:06 Dose: 250 mls/hr Documented by: Remdesivir 100 mg/ Sodium (Chloride) 100 mls @ 100 mls/hr IV Q24H [facility] Stop: 05/07/21 03:59 Last Admin: 05/07/21 02:17 Dose: 100 mls/hr Documented by: Pantoprazole Sodium 40 mg/ (Sodium Chloride) 10 mls @ 300 mls/hr IV ONETIME ONE Stop: 05/03/21 08:23 Last Admin: 05/03/21 09:25 Dose: 300 mls/hr Documented by: Ibuprofen (Ibuprofen 400 Mg Tab) 400 mg PO ONETIME ONE Stop: 05/03/21 02:29 Last Admin: 05/03/21 02:50 Dose: 400 mg Documented by: Sodium Chloride (Sodium Chloride 0.9% 10 Ml Syringe) 10 ml FLUSH ASDIRECTED PRN PRN Reason: Keep Vein Open Last Admin: 05/03/21 02:12 Dose: 10 ml Documented by: Sodium Chloride (Sodium Chloride 0.9% 2.5 Ml Syringe) 2.5 ml FLUSH ASDIRECTED PRN PRN Reason: Keep Vein Open Last Admin: 05/03/21 02:12 Dose: 2.5 ml Documented by: - Exam Quality Assessment: Supplemental Oxygen (5 L nasal cannula), DVT Prophylaxis General: Alert, Oriented, Cooperative, No Acute Distress HEENT: Pupils Equal Neck: Supple Lungs: Decreased Breath Sounds (Bibasilar but steadily improving daily) Cardiovascular: Regular Rate, Regular Rhythm GI/Abdominal Exam: Normal Bowel Sounds, Soft, Non-Tender Extremities: Normal Inspection, Normal Range of Motion, Non-Tender, No Pedal Edema Neurological: No New Focal Deficit Psy/Mental Status: Alert, Normal Affect, Normal Mood - Patient Data Lab Results Last 24 hrs: Laboratory Results - last 24 hr 05/10/21 05/10/21 Range/Units 05:27 05:27 WBC 6.07 (4.0-11.0) K/uL RBC 4.74 (4.30-5.90) M/uL Hgb 14.1 (12.0-16.0) g/dL Hct 40.6 (36.0-46.0) % MCV 85.7 (80.0-98.0) fL MCH 29.7 (27.0-32.0) pg MCHC 34.7 (31.0-37.0) g/dL RDW Std Deviation 44.3 (28.0-62.0) fl RDW Coeff of Yan[place] 14 (11.0-15.0) % Plt Count 472 H (150-400) K/uL MPV 10.80 (7.40-12.00) fL Neut % (Auto) 76.7 (48.0-80.0) % Lymph % (Auto) 16.5 (16.0-40.0) % [place] % (Auto) 6.8 (0.0-15.0) % Eos % (Auto) 0.0 (0.0-7.0) % Baso % (Auto) 0.0 (0.0-1.5) % Neut # (Auto) 4.7 (1.4-5.7) K/uL Lymph # (Auto) 1.0 (0.6-2.4) K/uL [place] # (Auto) 0.4 (0.0-0.8) K/uL Eos # (Auto) 0.0 (0.0-0.7) K/uL Baso # (Auto) 0.0 (0.0-0.1) K/uL Nucleated RBC % 0.0 /100WBC Nucleated RBCs # 0 K/uL Sodium 135 L (136-145) mmol/L Potassium 3.9 (3.5-5.1) mmol/L Chloride 101 (98-107) mmol/L Carbon Dioxide 21.7 (21.0-32.0) mmol/L BUN 20 H (7.0-18.0) mg/dL Creatinine 0.9 (0.6-1.0) mg/dL Est Cr Clr Drug Dosing 63.14 mL/min Estimated GFR (MDRD) > 60.0 ml/min Glucose 191 H (74-106) mg/dL Calcium 8.1 L (8.5-10.1) mg/dL Total Bilirubin 0.5 (0.2-1.0) mg/dL AST 8 L (15-37) IU/L ALT 32 (14-63) IU/L Alkaline Phosphatase 101 (46-116) U/L Total Protein 6.4 (6.4-8.2) g/dL Albumin 2.8 L (3.4-5.0) g/dL Globulin 3.6 (2.6-4.0) g/dL Albumin/Globulin Ratio 0.8 L (0.9-1.6) Result Diagrams: 09/01/21 05:27 05/10/21 05:27 Sepsis Event Note - Evaluation Sepsis Screening Result: No Definite Risk - Focused Exam Vital Signs: Vital Signs Temp Resp BP Pulse Ox 05/10/21 07:00 18 122/82 94 L 05/10/21 06:00 21 H 106/70 96 05/10/21 05:00 26 H 108/67 93 L 05/10/21 04:00 97.3 F 29 H 106/68 91 L 05/10/21 03:00 16 111/66 94 L 05/10/21 02:00 15 106/64 95 05/10/21 01:00 18 107/59 L 94 L 05/10/21 00:00 97.2 F 16 112/70 92 L 05/09/21 23:00 17 117/66 92 L 05/09/21 22:00 21 H 122/56 L 95 05/09/21 21:00 23 H 106/71 93 L - Problem List & Annotations (1) Acute respiratory failure with hypoxia SNOMED Code(s): 37776316, 337001466 Code(s): J96.01 - ACUTE RESPIRATORY FAILURE WITH HYPOXIA Status: Acute Current Visit: Yes (2) COVID-19 SNOMED Code(s): 530403346 Code(s): U07.1 - COVID-19 Status: Acute Current Visit: Yes (3) Viral pneumonia SNOMED Code(s): 53817167 Code(s): J12.9 - VIRAL PNEUMONIA, UNSPECIFIED Status: Acute Current Visit: Yes (4) Obesity SNOMED Code(s): 116473948, 603510772 Code(s): E66.9 - OBESITY, UNSPECIFIED Status: Chronic Current Visit: Yes (5) Migraine SNOMED Code(s): 88188991 Code(s): G43.909 - MIGRAINE, UNSP, NOT INTRACTABLE, WITHOUT STATUS MIGRAINOSUS Status: Chronic Current Visit: No (6) Constipation SNOMED Code(s): 50308169 Code(s): K59.00 - CONSTIPATION, UNSPECIFIED Status: Acute Current Visit: Yes - Problem List Review Problem List Initiated/Reviewed/Updated: Yes - My Orders Last 24 Hours: My Active Orders 05/09/21 08:44 Sennosides [Senna] 8.6 mg PO Q12H PRN 05/09/21 08:45 bisacodyL [Dulcolax] 10 mg RECTAL DAILY PRN 05/11/21 05:11 CBC WITH AUTO DIFF [HEME] AM COMPREHENSIVE METABOLIC PN,CMP [CHEM] AM 05/12/21 05:11 CBC WITH AUTO DIFF [HEME] AM COMPREHENSIVE METABOLIC PN,CMP [CHEM] AM 05/13/21 05:11 CBC WITH AUTO DIFF [HEME] AM COMPREHENSIVE METABOLIC PN,CMP [CHEM] AM - Plan Plan:: This 50-year-old female admitted with acute hypoxic respiratory failure COVID- 19, viral pneumonia 1. Acute hypoxic respiratory failure, COVID-19 and viral pneumonia -Slow improvement now currently on 5 L regular nasal cannula satting mid 90s -Completed remdesivir course x5 days -Continue dexamethasone 6 mg p.o. daily today day 8 of 10 -Continue baricitinib p.o. daily -Combivent inhaler every 4 hours -Tessalon Perles or Robitussin with codeine for cough as needed -Encourage I-S, Acapella and proning -Lovenox for DVT prophylaxis -Oxygen to keep sats greater 92% wean as possible -Monitor LFTs while on intensive care therapy -Chest x-ray shows improving infectious/inflammatory process from COVID-19 continue to monitor, no signs of possible bacterial infiltrates. VTE prophylaxis: Lovenox GI prophylaxis: Protonix while on high-dose steroids CODE STATUS: Full code Dispo 2 to 3 days pending improvement. Possible transition out of ICU today if remains stable on 5 L nasal cannula will reassess this afternoon
[2021-05-10] MEDS: Enoxaparin 40 MG/0.4 ML Syringe SUBCUT SCH (11:57)
[2021-05-10] MEDS: Melatonin 3 MG Tab PO SCH (21:18)
[2021-05-10] MEDS: Dexamethasone 4 MG Tab PO SCH (22:25)
[2021-05-11] MEDS: Albuterol/Ipratropium 4 GM Inhalation Spray INH SCH ×6 (02:22→22:20)
[2021-05-11] MEDS: Codeine/guaiFENesin 10-100 MG/5 ML Syrup 5 ML Cup PO SCH ×6 (02:22→22:14)
[2021-05-11 06:44] LABS: BLOOD UREA NITROGEN,BUN 20 mg/dL (7.0-18.0); CARBON DIOXIDE,CO2 23.3 mmol/L (21.0-32.0); CHLORIDE,CL 105 mmol/L (98-107); GLUCOSE RANDOM 147 mg/dL (74-106); POTASSIUM,K 4.4 mmol/L (3.5-5.1); SODIUM,NA 138 mmol/L (136-145)
[2021-05-11] MEDS: Pantoprazole 40 MG Tab.CR PO SCH (08:50)
[2021-05-11] MEDS: Enoxaparin 40 MG/0.4 ML Syringe SUBCUT SCH (11:00)
--- NOTE | 2021-05-11 14:24 | PCM.PN ---
- General Info Date of Service: 05/11/21 Admission Dx/Problem (Free Text): Admission Diagnosis/Problem Admission Diagnosis/Problem Pneumonia Subjective Update: Seen at bedside, currently on no pressure nasal cannula at 2 L feels much better today. No acute complaints Functional Status: Reports: Tolerating Diet, Ambulating, Urinating - Review of Systems General: Reports: Weakness. Denies: Fever, Fatigue, Malaise, Chills, Night Sweats Pulmonary: Reports: Shortness of Breath, Cough. Denies: Pleuritic Chest Pain, Sputum Cardiovascular: Reports: Dyspnea on Exertion. Denies: Chest Pain, Palpitations, Orthopnea Gastrointestinal: Denies: Abdominal Pain, Constipation, Decreased Appetite Genitourinary: Denies: Dysuria, Frequency, Burning, Pain, Urgency Musculoskeletal: Denies: Neck Pain, Shoulder Pain, Arm Pain, Hand Pain Skin: Denies: Cyanosis, Jaundice, Mottled Neurological: Denies: Confusion, Dizziness, Headache, Numbness - Patient Data Vitals - Most Recent: Last Vital Signs Temp 36.2 C 05/11/21 11:04 Pulse 65 05/11/21 11:04 Resp 16 05/11/21 11:04 BP 98/56 L 05/11/21 11:04 Pulse Ox 92 L 05/11/21 11:04 Weight - Most Recent: 92.805 kg I&O - Last 24 Hours: Intake & Output 05/10/21 05/11/21 05/11/21 22:59 06:59 14:59 Intake Total 950 360 Output Total 1100 Balance -150 360 Lab Results Last 24 Hours: Laboratory Results - last 24 hr 05/11/21 05/11/21 Range/Units 05:35 05:35 WBC 5.90 (4.0-11.0) K/uL RBC 4.74 (4.30-5.90) M/uL Hgb 14.2 (12.0-16.0) g/dL Hct 40.6 (36.0-46.0) % MCV 85.7 (80.0-98.0) fL MCH 30.0 (27.0-32.0) pg MCHC 35.0 (31.0-37.0) g/dL RDW Std Deviation 44.6 (28.0-62.0) fl RDW Coeff of Yaneth 14 (11.0-15.0) % Plt Count 529 H (150-400) K/uL MPV 10.50 (7.40-12.00) fL Neut % (Auto) 77.9 (48.0-80.0) % Lymph % (Auto) 16.3 (16.0-40.0) % [place] % (Auto) 5.6 (0.0-15.0) % Eos % (Auto) 0.0 (0.0-7.0) % Baso % (Auto) 0.2 (0.0-1.5) % Neut # (Auto) 4.6 (1.4-5.7) K/uL Lymph # (Auto) 1.0 (0.6-2.4) K/uL [place] # (Auto) 0.3 (0.0-0.8) K/uL Eos # (Auto) 0.0 (0.0-0.7) K/uL Baso # (Auto) 0.0 (0.0-0.1) K/uL Nucleated RBC % 0.0 /100WBC Nucleated RBCs # 0 K/uL Sodium 138 (136-145) mmol/L Potassium 4.4 (3.5-5.1) mmol/L Chloride 105 (98-107) mmol/L Carbon Dioxide 23.3 (21.0-32.0) mmol/L BUN 20 H (7.0-18.0) mg/dL Creatinine 0.8 (0.6-1.0) mg/dL Est Cr Clr Drug Dosing 71.03 mL/min Estimated GFR (MDRD) > 60.0 ml/min Glucose 147 H (74-106) mg/dL Calcium 8.2 L (8.5-10.1) mg/dL Total Bilirubin 0.6 (0.2-1.0) mg/dL AST 10 L (15-37) IU/L ALT 28 (14-63) IU/L Alkaline Phosphatase 98 (46-116) U/L Total Protein 6.2 L (6.4-8.2) g/dL Albumin 2.7 L (3.4-5.0) g/dL Globulin 3.5 (2.6-4.0) g/dL Albumin/Globulin Ratio 0.8 L (0.9-1.6) Med Orders - Current: Current Medications Acetaminophen (Acetaminophen 325 Mg Tab) 650 mg PO Q6H PRN PRN Reason: Pain/Fever Last Admin: 05/07/21 00:42 Dose: 650 mg Documented by: Albuterol/Ipratropium (Albuterol/Ipratropium 4 Gm Inhalation [place]) 0 gm INH Q4HRRT [facility] Last Admin: 05/11/21 13:35 Dose: 2 puff Documented by: Benzonatate (Benzonatate 100 Mg Cap) 200 mg PO Q6H PRN PRN Reason: Cough Last Admin: 05/09/21 21:29 Dose: 200 mg Documented by: Bisacodyl (Bisacodyl 10 Mg Supp) 10 mg RECTAL DAILY PRN PRN Reason: Constipation Last Admin: 05/10/21 09:44 Dose: 10 mg Documented by: Dexamethasone (Dexamethasone 4 Mg Tab) 6 mg PO Q24H [facility] Last Admin: 05/10/21 22:25 Dose: 6 mg Documented by: Docusate Sodium (Docusate Sodium 100 Mg Cap) 100 mg PO BID PRN PRN Reason: Constipation Last Admin: 05/09/21 21:29 Dose: 100 mg Documented by: Enoxaparin Sodium (Enoxaparin 40 Mg/0.4 Ml Syringe) 40 mg SUBCUT Q24H [facility] Last Admin: 05/11/21 11:00 Dose: 40 mg Documented by: Guaifenesin/Codeine Phosphate (Codeine/Guaifenesin 10-100 Mg/5 Ml Syrup 5 Ml Cup) 10 ml PO Q4H [facility] Last Admin: 05/11/21 13:41 Dose: 10 ml Documented by: Ibuprofen (Ibuprofen 400 Mg Tab) 400 mg PO Q6H PRN PRN Reason: Pain Last Admin: 05/06/21 08:43 Dose: 400 mg Documented by: Melatonin (Melatonin 3 Mg Tab) 6 mg PO BEDTIME [facility] Last Admin: 05/10/21 21:18 Dose: 6 mg Documented by: Ondansetron HCl (Ondansetron 4 Mg/2 Ml Sdv) 4 mg IVPUSH Q4H PRN PRN Reason: Nausea Pantoprazole Sodium (Pantoprazole 40 Mg Tab.Cr) 40 mg PO ACBREAKFAST [facility] Last Admin: 05/11/21 08:50 Dose: 40 mg Documented by: Senna (Sennosides 8.6 Mg Tab) 8.6 mg PO Q12H PRN PRN Reason: Constipation Last Admin: 05/09/21 15:04 Dose: 8.6 mg Documented by: Sodium Chloride (Sodium Chloride 0.9% 2.5 Ml Syringe) 2.5 ml FLUSH ASDIRECTED PRN PRN Reason: Keep Vein Open Last Admin: 05/07/21 10:16 Dose: 2.5 ml Documented by: Discontinued Medications Albuterol (Albuterol 8 Gm Inhaler) 8 gm INH ONETIME STA Stop: 05/03/21 01:38 Last Admin: 05/03/21 02:06 Dose: 90 mcg Documented by: Benzonatate (Benzonatate 100 Mg Cap) 200 mg PO ONETIME ONE Stop: 05/03/21 01:38 Last Admin: 05/03/21 02:11 Dose: 200 mg Documented by: Benzonatate (Benzonatate 100 Mg Cap) 100 mg PO Q6H PRN PRN Reason: Cough Last Admin: 05/05/21 06:20 Dose: 100 mg Documented by: Dexamethasone (Dexamethasone 10 Mg/Ml Sdv) 10 mg IVPUSH ONETIME ONE Stop: 05/03/21 02:28 Last Admin: 05/03/21 02:50 Dose: 10 mg Documented by: Furosemide (Furosemide 20 Mg/2 Ml Vial) 20 mg IVPUSH ONETIME ONE Stop: 05/08/21 09:43 Last Admin: 05/08/21 10:06 Dose: 20 mg Documented by: Guaifenesin/Codeine Phosphate (Codeine/Guaifenesin 10-100 Mg/5 Ml Syrup 5 Ml Cup) 5 ml PO Q4H PRN PRN Reason: Cough Last Admin: 05/05/21 04:08 Dose: 5 ml Documented by: Guaifenesin/Codeine Phosphate (Codeine/Guaifenesin 10-100 Mg/5 Ml Syrup 5 Ml Cup) 10 ml PO Q4H PRN PRN Reason: Cough Last Admin: 05/08/21 13:10 Dose: 10 ml Documented by: Remdesivir 200 mg/ Sodium (Chloride) 250 mls @ 250 mls/hr IV ONETIME ONE Stop: 05/03/21 02:27 Last Admin: 05/03/21 03:06 Dose: 250 mls/hr Documented by: Remdesivir 100 mg/ Sodium (Chloride) 100 mls @ 100 mls/hr IV Q24H [facility]AY[facility] Stop: 05/07/21 03:59 Last Admin: 05/07/21 02:17 Dose: 100 mls/hr Documented by: Pantoprazole Sodium 40 mg/ (Sodium Chloride) 10 mls @ 300 mls/hr IV ONETIME ONE Stop: 05/03/21 08:23 Last Admin: 05/03/21 09:25 Dose: 300 mls/hr Documented by: Ibuprofen (Ibuprofen 400 Mg Tab) 400 mg PO ONETIME ONE Stop: 05/03/21 02:29 Last Admin: 05/03/21 02:50 Dose: 400 mg Documented by: Sodium Chloride (Sodium Chloride 0.9% 10 Ml Syringe) 10 ml FLUSH ASDIRECTED PRN PRN Reason: Keep Vein Open Last Admin: 05/03/21 02:12 Dose: 10 ml Documented by: Sodium Chloride (Sodium Chloride 0.9% 2.5 Ml Syringe) 2.5 ml FLUSH ASDIRECTED PRN PRN Reason: Keep Vein Open Last Admin: 05/03/21 02:12 Dose: 2.5 ml Documented by: - Exam Quality Assessment: Supplemental Oxygen General: Alert, Oriented, Cooperative, No Acute Distress Neck: Supple Lungs: Normal Respiratory Effort, Decreased Breath Sounds, Rales Cardiovascular: Regular Rate, Regular Rhythm. No: Bradycardia, Tachycardia GI/Abdominal Exam: Normal Bowel Sounds, Soft, Non-Tender - Patient Data Lab Results Last 24 hrs: Laboratory Results - last 24 hr 05/11/21 05/11/21 Range/Units 05:35 05:35 WBC 5.90 (4.0-11.0) K/uL RBC 4.74 (4.30-5.90) M/uL Hgb 14.2 (12.0-16.0) g/dL Hct 40.6 (36.0-46.0) % MCV 85.7 (80.0-98.0) fL MCH 30.0 (27.0-32.0) pg MCHC 35.0 (31.0-37.0) g/dL RDW Std Deviation 44.6 (28.0-62.0) fl RDW Coeff of Yaneth 14 (11.0-15.0) % Plt Count 529 H (150-400) K/uL MPV 10.50 (7.40-12.00) fL Neut % (Auto) 77.9 (48.0-80.0) % Lymph % (Auto) 16.3 (16.0-40.0) % [place] % (Auto) 5.6 (0.0-15.0) % Eos % (Auto) 0.0 (0.0-7.0) % Baso % (Auto) 0.2 (0.0-1.5) % Neut # (Auto) 4.6 (1.4-5.7) K/uL Lymph # (Auto) 1.0 (0.6-2.4) K/uL [place] # (Auto) 0.3 (0.0-0.8) K/uL Eos # (Auto) 0.0 (0.0-0.7) K/uL Baso # (Auto) 0.0 (0.0-0.1) K/uL Nucleated RBC % 0.0 /100WBC Nucleated RBCs # 0 K/uL Sodium 138 (136-145) mmol/L Potassium 4.4 (3.5-5.1) mmol/L Chloride 105 (98-107) mmol/L Carbon Dioxide 23.3 (21.0-32.0) mmol/L BUN 20 H (7.0-18.0) mg/dL Creatinine 0.8 (0.6-1.0) mg/dL Est Cr Clr Drug Dosing 71.03 mL/min Estimated GFR (MDRD) > 60.0 ml/min Glucose 147 H (74-106) mg/dL Calcium 8.2 L (8.5-10.1) mg/dL Total Bilirubin 0.6 (0.2-1.0) mg/dL AST 10 L (15-37) IU/L ALT 28 (14-63) IU/L Alkaline Phosphatase 98 (46-116) U/L Total Protein 6.2 L (6.4-8.2) g/dL Albumin 2.7 L (3.4-5.0) g/dL Globulin 3.5 (2.6-4.0) g/dL Albumin/Globulin Ratio 0.8 L (0.9-1.6) Result Diagrams: 05/11/21 05:35 05/11/21 05:35 Sepsis Event Note - Evaluation Sepsis Screening Result: No Definite Risk - Focused Exam Vital Signs: Vital Signs Temp Pulse Resp BP Pulse Ox 05/11/21 11:04 36.2 C 65 16 98/56 L 92 L 05/11/21 08:44 36.3 C 54 L 16 107/64 94 L 05/11/21 05:45 36.2 C 60 16 104/63 93 L 05/11/21 02:21 36.1 C 56 L 18 114/70 94 L - Problem List & Annotations (1) Acute respiratory failure with hypoxia SNOMED Code(s): 39465891, 073242725 Code(s): J96.01 - ACUTE RESPIRATORY FAILURE WITH HYPOXIA Status: Acute Current Visit: Yes (2) COVID-19 SNOMED Code(s): 478005180 Code(s): U07.1 - COVID-19 Status: Acute Current Visit: Yes (3) Obesity SNOMED Code(s): 212584463, 882295654 Code(s): E66.9 - OBESITY, UNSPECIFIED Status: Chronic Current Visit: Yes (4) Migraine SNOMED Code(s): 99768345 Code(s): G43.909 - MIGRAINE, UNSP, NOT INTRACTABLE, WITHOUT STATUS MIGRAINOSUS Status: Chronic Current Visit: No - Problem List Review Problem List Initiated/Reviewed/Updated: Yes - Plan Plan:: This 50-year-old female admitted with acute hypoxic respiratory failure COVID- 19, viral pneumonia 1. Acute hypoxic respiratory failure, COVID-19 and viral pneumonia -currently on 2 L regular nasal cannula satting mid 90s -Completed remdesivir course x5 days -Continue dexamethasone 6 mg p.o. daily today day 9 of 10 -Continue baricitinib p.o. daily -Combivent inhaler every 4 hours -Tessalon Perles or Robitussin with codeine for cough as needed -Encourage I-S, Acapella and proning -Lovenox for DVT prophylaxis -Oxygen to keep sats greater 92% wean as possible -Monitor LFTs while on intensive care therapy -Chest x-ray shows improving infectious/inflammatory process from COVID-19 continue to monitor, no signs of possible bacterial infiltrates. VTE prophylaxis: Lovenox GI prophylaxis: Protonix while on high-dose steroids CODE STATUS: Full code Dispo 2 to 3 days pending improvement. Possible transition out of ICU today if remains stable on 5 L nasal cannula will reassess this afternoon
[2021-05-11] MEDS: Dexamethasone 4 MG Tab PO SCH (22:14)
[2021-05-11] MEDS: Melatonin 3 MG Tab PO SCH (22:16)
[2021-05-12] MEDS: Albuterol/Ipratropium 4 GM Inhalation Spray INH SCH ×4 (02:47→14:36)
[2021-05-12] MEDS: Codeine/guaiFENesin 10-100 MG/5 ML Syrup 5 ML Cup PO SCH ×4 (02:47→14:39)
[2021-05-12 06:10] LABS: BLOOD UREA NITROGEN,BUN 21 mg/dL (7.0-18.0); CARBON DIOXIDE,CO2 23.8 mmol/L (21.0-32.0); CHLORIDE,CL 105 mmol/L (98-107); GLUCOSE RANDOM 146 mg/dL (74-106); POTASSIUM,K 4.5 mmol/L (3.5-5.1); SODIUM,NA 137 mmol/L (136-145)
[2021-05-12] MEDS: Pantoprazole 40 MG Tab.CR PO SCH ×2 (06:23→06:49)
[2021-05-12] MEDS: Docusate Sodium 100 MG Cap PO PRN (08:30)
[2021-05-12] MEDS: Sennosides 8.6 MG Tab PO PRN (08:30)
[2021-05-12 11:45] VITALS: BP 97/54; PULSE 76
[2021-05-12] MEDS: Enoxaparin 40 MG/0.4 ML Syringe SUBCUT SCH (11:45)
--- NOTE | 2021-05-12 14:36 | PCM.DCSUM1 ---
Discharge Summary - Hospital Course Diagnosis: Stroke: No - Discharge Data Discharge Disposition: Home, Self-Care 01 Condition: Good - Referral to Home Health Primary Care Physician: PCP None - Discharge Diagnosis/Problem(s) (1) Acute respiratory failure with hypoxia SNOMED Code(s): 28456011, 914408859 ICD Code: J96.01 - ACUTE RESPIRATORY FAILURE WITH HYPOXIA Status: Acute Current Visit: Yes (2) COVID-19 SNOMED Code(s): 125419766 ICD Code: U07.1 - COVID-19 Status: Acute Current Visit: Yes (3) Obesity SNOMED Code(s): 111558912, 451871516 ICD Code: E66.9 - OBESITY, UNSPECIFIED Status: Chronic Current Visit: Yes (4) Migraine SNOMED Code(s): 46604348 ICD Code: G43.909 - MIGRAINE, UNSP, NOT INTRACTABLE, WITHOUT STATUS MIGRAINOSUS Status: Chronic Current Visit: No - Patient Instructions Diet: Regular Diet as Tolerated Activity: No Strenuous Activities, Rest and Relax Today Showering/Bathing: May Shower Notify Provider of: Fever, Increased Pain, Swelling and Redness, Drainage, Nausea and/or Vomiting - Discharge Plan *PRESCRIPTION DRUG MONITORING PROGRAM REVIEWED*: Not Applicable *COPY OF PRESCRIPTION DRUG MONITORING REPORT IN PATIENT KILLIAN: Not Applicable Prescriptions/Med Rec: Albuterol/Ipratropium [Combivent Respimat] 2 puff IH Q4H PRN #1 aer.w.adap PRN Reason: wheezing, shortness of breath Home Medications: Home Meds Acetaminophen [Tylenol] 650 mg PO Q6H PRN tablet 05/12/21 [Rx] Albuterol/Ipratropium [Combivent Respimat] 2 puff IH Q4H PRN #1 aer.w.adap 05/12/21 [Rx] Oxygen Therapy Mode: Room Air Patient Handouts: Ipratropium; Albuterol Inhalation [place] (Combivent Respimat), COVID-19, COVID-19: How to Protect Yourself and Others - [facility] [place] Referrals: Lebron Chavira MD [Physician] - 05/16/21 1:30 pm - Patient Data Vitals - Most Recent: Last Vital Signs Temp 36.2 C 05/12/21 11:43 Pulse 76 05/12/21 11:43 Resp 16 05/12/21 11:43 BP 97/54 L 05/12/21 11:43 Pulse Ox 93 L 05/12/21 11:43 Weight - Most Recent: 92.805 kg I&O - Last 24 hours: Intake & Output 05/11/21 05/12/21 05/12/21 22:59 06:59 14:59 Intake Total 1230 Output Total 2 Balance 1230 -2 Lab Results - Last 24 hrs: Laboratory Results - last 24 hr 05/12/21 05/12/21 Range/Units 05:10 05:10 WBC 5.71 (4.0-11.0) K/uL RBC 4.80 (4.30-5.90) M/uL Hgb 14.1 (12.0-16.0) g/dL Hct 41.6 (36.0-46.0) % MCV 86.7 (80.0-98.0) fL MCH 29.4 (27.0-32.0) pg MCHC 33.9 (31.0-37.0) g/dL RDW Std Deviation 45.2 (28.0-62.0) fl RDW Coeff of Yaneth 15 (11.0-15.0) % Plt Count 482 H (150-400) K/uL MPV 10.60 (7.40-12.00) fL Neut % (Auto) 73.9 (48.0-80.0) % Lymph % (Auto) 18.9 (16.0-40.0) % [place] % (Auto) 6.8 (0.0-15.0) % Eos % (Auto) 0.2 (0.0-7.0) % Baso % (Auto) 0.2 (0.0-1.5) % Neut # (Auto) 4.2 (1.4-5.7) K/uL Lymph # (Auto) 1.1 (0.6-2.4) K/uL [place] # (Auto) 0.4 (0.0-0.8) K/uL Eos # (Auto) 0.0 (0.0-0.7) K/uL Baso # (Auto) 0.0 (0.0-0.1) K/uL Nucleated RBC % 0.0 /100WBC Nucleated RBCs # 0 K/uL Sodium 137 (136-145) mmol/L Potassium 4.5 (3.5-5.1) mmol/L Chloride 105 (98-107) mmol/L Carbon Dioxide 23.8 (21.0-32.0) mmol/L BUN 21 H (7.0-18.0) mg/dL Creatinine 0.8 (0.6-1.0) mg/dL Est Cr Clr Drug Dosing 71.03 mL/min Estimated GFR (MDRD) > 60.0 ml/min Glucose 146 H (74-106) mg/dL Calcium 8.0 L (8.5-10.1) mg/dL Phosphorus 3.5 (2.6-4.7) mg/dL Magnesium 2.3 (1.8-2.4) mg/dL Total Bilirubin 0.6 (0.2-1.0) mg/dL AST 8 L (15-37) IU/L ALT 25 (14-63) IU/L Alkaline Phosphatase 95 (46-116) U/L Total Protein 6.0 L (6.4-8.2) g/dL Albumin 2.6 L (3.4-5.0) g/dL Globulin 3.4 (2.6-4.0) g/dL Albumin/Globulin Ratio 0.8 L (0.9-1.6) Med Orders - Current: Current Medications Acetaminophen (Acetaminophen 325 Mg Tab) 650 mg PO Q6H PRN PRN Reason: Pain/Fever Last Admin: 05/07/21 00:42 Dose: 650 mg Documented by: Albuterol/Ipratropium (Albuterol/Ipratropium 4 Gm Inhalation [place]) 0 gm INH Q4HRRT [facility] Last Admin: 05/12/21 11:41 Dose: 2 puff Documented by: Benzonatate (Benzonatate 100 Mg Cap) 200 mg PO Q6H PRN PRN Reason: Cough Last Admin: 05/09/21 21:29 Dose: 200 mg Documented by: Bisacodyl (Bisacodyl 10 Mg Supp) 10 mg RECTAL DAILY PRN PRN Reason: Constipation Last Admin: 05/10/21 09:44 Dose: 10 mg Documented by: Dexamethasone (Dexamethasone 4 Mg Tab) 6 mg PO Q24H [facility] Last Admin: 05/11/21 22:14 Dose: 6 mg Documented by: Docusate Sodium (Docusate Sodium 100 Mg Cap) 100 mg PO BID PRN PRN Reason: Constipation Last Admin: 05/12/21 08:30 Dose: 100 mg Documented by: Enoxaparin Sodium (Enoxaparin 40 Mg/0.4 Ml Syringe) 40 mg SUBCUT Q24H [facility] Last Admin: 05/12/21 11:45 Dose: 40 mg Documented by: Guaifenesin/Codeine Phosphate (Codeine/Guaifenesin 10-100 Mg/5 Ml Syrup 5 Ml Cup) 10 ml PO Q4H [facility] Last Admin: 05/12/21 10:41 Dose: 10 ml Documented by: Ibuprofen (Ibuprofen 400 Mg Tab) 400 mg PO Q6H PRN PRN Reason: Pain Last Admin: 05/06/21 08:43 Dose: 400 mg Documented by: Melatonin (Melatonin 3 Mg Tab) 6 mg PO BEDTIME [facility] Last Admin: 05/11/21 22:16 Dose: 6 mg Documented by: Ondansetron HCl (Ondansetron 4 Mg/2 Ml Sdv) 4 mg IVPUSH Q4H PRN PRN Reason: Nausea Pantoprazole Sodium (Pantoprazole 40 Mg Tab.Cr) 40 mg PO ACBREAKFAST [facility] Last Admin: 05/12/21 06:49 Dose: Not Given Documented by: Senna (Sennosides 8.6 Mg Tab) 8.6 mg PO Q12H PRN PRN Reason: Constipation Last Admin: 05/12/21 08:30 Dose: 8.6 mg Documented by: Sodium Chloride (Sodium Chloride 0.9% 2.5 Ml Syringe) 2.5 ml FLUSH ASDIRECTED PRN PRN Reason: Keep Vein Open Last Admin: 05/07/21 10:16 Dose: 2.5 ml Documented by: Discontinued Medications Albuterol (Albuterol 8 Gm Inhaler) 8 gm INH ONETIME STA Stop: 05/03/21 01:38 Last Admin: 05/03/21 02:06 Dose: 90 mcg Documented by: Benzonatate (Benzonatate 100 Mg Cap) 200 mg PO ONETIME ONE Stop: 05/03/21 01:38 Last Admin: 05/03/21 02:11 Dose: 200 mg Documented by: Benzonatate (Benzonatate 100 Mg Cap) 100 mg PO Q6H PRN PRN Reason: Cough Last Admin: 05/05/21 06:20 Dose: 100 mg Documented by: Dexamethasone (Dexamethasone 10 Mg/Ml Sdv) 10 mg IVPUSH ONETIME ONE Stop: 05/03/21 02:28 Last Admin: 05/03/21 02:50 Dose: 10 mg Documented by: Furosemide (Furosemide 20 Mg/2 Ml Vial) 20 mg IVPUSH ONETIME ONE Stop: 05/08/21 09:43 Last Admin: 05/08/21 10:06 Dose: 20 mg Documented by: Guaifenesin/Codeine Phosphate (Codeine/Guaifenesin 10-100 Mg/5 Ml Syrup 5 Ml Cup) 5 ml PO Q4H PRN PRN Reason: Cough Last Admin: 05/05/21 04:08 Dose: 5 ml Documented by: Guaifenesin/Codeine Phosphate (Codeine/Guaifenesin 10-100 Mg/5 Ml Syrup 5 Ml Cup) 10 ml PO Q4H PRN PRN Reason: Cough Last Admin: 05/08/21 13:10 Dose: 10 ml Documented by: Remdesivir 200 mg/ Sodium (Chloride) 250 mls @ 250 mls/hr IV ONETIME ONE Stop: 05/03/21 02:27 Last Admin: 05/03/21 03:06 Dose: 250 mls/hr Documented by: Remdesivir 100 mg/ Sodium (Chloride) 100 mls @ 100 mls/hr IV Q24H [facility] Stop: 05/07/21 03:59 Last Admin: 05/07/21 02:17 Dose: 100 mls/hr Documented by: Pantoprazole Sodium 40 mg/ (Sodium Chloride) 10 mls @ 300 mls/hr IV ONETIME ONE Stop: 05/03/21 08:23 Last Admin: 05/03/21 09:25 Dose: 300 mls/hr Documented by: Ibuprofen (Ibuprofen 400 Mg Tab) 400 mg PO ONETIME ONE Stop: 05/03/21 02:29 Last Admin: 05/03/21 02:50 Dose: 400 mg Documented by: Sodium Chloride (Sodium Chloride 0.9% 10 Ml Syringe) 10 ml FLUSH ASDIRECTED PRN PRN Reason: Keep Vein Open Last Admin: 05/03/21 02:12 Dose: 10 ml Documented by: Sodium Chloride (Sodium Chloride 0.9% 2.5 Ml Syringe) 2.5 ml FLUSH ASDIRECTED PRN PRN Reason: Keep Vein Open Last Admin: 05/03/21 02:12 Dose: 2.5 ml Documented by:
== END 2021-05-12 17:25 | disposition home or self-care (01) | DRG 177 ==
LOC: MW.ED 01:03 → MW.MS 02:27 → MW.ICU 05-07 19:56 → MW.MS 05-10 18:51
PROVIDERS: ADMIT Internal Medicine; ATTEND Internal Medicine
PROC: XW033E5 Introduction of Remdesivir Anti-infective into Peripheral Vein, Percutaneous Approach, New Technology Group 5 (ICD-10-PCS; principal; 2021-05-03)
PROC: 3E0333Z Introduction of Anti-inflammatory into Peripheral Vein, Percutaneous Approach (ICD-10-PCS; 2021-05-03)
DX: U07.1 COVID-19 (principal); J96.01 Acute respiratory failure with hypoxia; J12.82 Pneumonia due to coronavirus disease 2019; E66.9 Obesity, unspecified; G43.909 Migraine, unspecified, not intractable, without status migrainosus; F17.200 Nicotine dependence, unspecified, uncomplicated; K59.00 Constipation, unspecified; Z68.35 Body mass index [BMI] 35.0-35.9, adult
CPT/HCPCS: 36415; 71045; 71045-26; 80053; 81003; 82248; 83735; 84100; 84484; 85025; 86140; 93005; 93010; 94640; 94664; 94667; 94668; 99284; 99285-25; A9270-GY; C9113; J1100; J1650; J1940; J7050; J8540

== ENCOUNTER 2022-04-15 15:51 | Emergency (ER) | payer SELFPAY ==
[2022-04-15] MEDS ORDERED: Dexamethasone 10 MG/ML SDV IM STA (16:46)
[2022-04-15] MEDS ORDERED: Diazepam 5 MG Tab PO STA (16:47)
[2022-04-15 17:40] VITALS: PULSE 69
[2022-04-15 18:13] VITALS: BP 126/70
== END 2022-04-15 18:13 | disposition home or self-care (01) ==
LOC: MW.ED 15:51
DX: J02.9 Acute pharyngitis, unspecified (principal); R59.0 Localized enlarged lymph nodes; R51.9 Headache, unspecified; E66.9 Obesity, unspecified; Z68.35 Body mass index [BMI] 35.0-35.9, adult
CPT/HCPCS: 36415; 70450; 72125; 85025; 86308; 96372; 99284; A9270; J1100

== ENCOUNTER 2022-08-12 10:41 | Emergency (ER) | payer SELFPAY ==
[2022-08-12] MEDS ORDERED: Ondansetron 4 MG/2 ML SDV IVPUSH ONE (11:31)
[2022-08-12] MEDS ORDERED: Lactated Ringers 1,000 ML IV ONE (11:31)
[2022-08-12] MEDS ORDERED: Ketorolac 30 MG/ML SDV IVPUSH ONE (11:31)
[2022-08-12 11:55] LABS: CORONAVIRUS COVID-19 NAA NEGATIVE (NEGATIVE); INFLUENZA A NAA NEGATIVE (NEGATIVE); INFLUENZA B NAA NEGATIVE (NEGATIVE); RESPIRATORY SYNCYTIAL VIR NAA NEGATIVE (NEGATIVE)
[2022-08-12 12:19] LABS: CARBON DIOXIDE,CO2 27.7 mmol/L (21.0-32.0)
[2022-08-12] MEDS ORDERED: Amoxicillin/Clavulanate K 875-125 MG Tab PO ONE (14:18)
[2022-08-12] MEDS ORDERED: Acetaminophen 325 MG Tab PO ONE (14:23)
[2022-08-12] MEDS ORDERED: Iopamidol 755 MG/ML 500 ML Multipack Bottle IVPUSH STA (16:29)
[2022-08-12 17:20] VITALS: BP 124/83; PULSE 69
== END 2022-08-12 17:38 | disposition home or self-care (01) ==
LOC: MW.ED 10:41
DX: J18.9 Pneumonia, unspecified organism (principal); E66.9 Obesity, unspecified; Z68.34 Body mass index [BMI] 34.0-34.9, adult; Z79.899 Other long term (current) drug therapy; Z20.822 Contact with and (suspected) exposure to COVID-19
CPT/HCPCS: 0241U; 36415; 71045; 74177; 80053; 81001; 85025; 87086; 96361; 96374; 96375; 99284; A9270; J1885; J2405; J7120; Q9967

== ENCOUNTER 2022-08-14 18:03 | Emergency (ER) | payer SELFPAY ==
[2022-08-14] MEDS ORDERED: Codeine/guaiFENesin 10-100 MG/5 ML Syrup 5 ML Cup PO ONE (20:20)
[2022-08-14] MEDS ORDERED: Ibuprofen 600 MG Tab PO ONE (20:20)
[2022-08-14 20:53] LABS: CORONAVIRUS COVID-19 NAA NEGATIVE (NEGATIVE); INFLUENZA A NAA NEGATIVE (NEGATIVE); INFLUENZA B NAA NEGATIVE (NEGATIVE)
[2022-08-14 21:33] VITALS: BP 136/82; PULSE 61
== END 2022-08-14 21:32 | disposition home or self-care (01) ==
LOC: MW.ED 18:03
DX: J18.9 Pneumonia, unspecified organism (principal); J06.9 Acute upper respiratory infection, unspecified; E66.9 Obesity, unspecified; Z68.34 Body mass index [BMI] 34.0-34.9, adult; Z20.822 Contact with and (suspected) exposure to COVID-19
CPT/HCPCS: 0240U; 71046; 99283; A9270

== ENCOUNTER 2025-05-15 22:17 | Emergency (ER) | payer SELFPAY ==
[2025-05-15] MEDS ORDERED: Sodium Chloride 0.9% 2.5 ML Syringe FLUSH PRN (23:02)
[2025-05-15] MEDS ORDERED: Sodium Chloride 0.9% 10 ML Syringe FLUSH PRN (23:02)
[2025-05-15 23:21] LABS: BASOPHILS ABSOLUTE AUTO 0.04 K/uL (0.00-0.20); BASOPHILS PERCENT AUTO 0.5 % (0.0-1.0); EOSINOPHILS ABSOLUTE AUTO 0.05 K/uL (0.00-0.45); EOSINOPHILS PERCENT AUTO 0.6 % (0.0-6.0); IMMATURE GRAN ABSOLUTE AUTO 0.03 K/uL (0.00-0.05); IMMATURE GRAN PERCENT AUTO 0.4 % (0.0-0.4); LYMPHOCYTES ABSOLUTE AUTO 1.55 K/uL (1.00-4.80); LYMPHOCYTES PERCENT AUTO 19.4 % (24.0-44.0); MEAN PLATELET VOLUME 10.4 fL (9.4-12.3); MONOCYTES ABSOLUTE AUTO 0.23 K/uL (0.00-0.80); MONOCYTES PERCENT AUTO 2.9 % (0.0-8.0); NEUTROPHILS ABSOLUTE AUTO 6.07 K/uL (1.80-7.70); NEUTROPHILS PERCENT AUTO 76.2 % (41.0-71.0); NRBC ABSOLUTE 0.00 K/uL (0.00-0.02); NRBC PERCENT 0.0 /100WBC (0.0-0.2); PLATELET COUNT,PLT 284 K/uL (150-400); RED BLOOD CELL COUNT 5.10 M/uL (4.10-5.30); WHITE BLOOD CELL COUNT,WBC 7.97 K/uL (3.9-11.3)
[2025-05-15 23:55] LABS: A/G RATIO 0.9 (0.9-1.6); ALANINE AMINOTRANSFERASE,ALT 30 IU/L (14-63); ASPARTATE AMNIOTRANSFERASE,AST 19 IU/L (15-37); BILIRUBIN TOTAL 0.4 mg/dL (0.2-1.0); BLOOD UREA NITROGEN,BUN 13 mg/dL (7.0-18.0); CARBON DIOXIDE,CO2 21.1 mmol/L (21.0-32.0); CHLORIDE,CL 105 mmol/L (98-107); CREATININE 1.0 mg/dL (0.6-1.0); GLUCOSE RANDOM 125 mg/dL (74-106); POTASSIUM,K 4.5 mmol/L (3.5-5.1); PRO B-TYPE NATRIUR PEPT,BNPPRO 24 pg/mL (0-125); PROTEIN TOTAL,TP 7.5 g/dL (6.4-8.2); SODIUM,NA 138 mmol/L (136-145)
[2025-05-15 23:57] LABS: ESTIMATED GFR 66 mL/min (>60)
[2025-05-16] MEDS: Ketorolac 30 MG/ML SDV IVPUSH ONE (00:38)
[2025-05-16 00:47] VITALS: BP 144/86; PULSE 60
== END 2025-05-16 00:47 | disposition home or self-care (01) ==
LOC: MW.ED 22:17
DX: R07.81 Pleurodynia (principal); R06.02 Shortness of breath; R05.2 Subacute cough; E66.9 Obesity, unspecified; Z79.899 Other long term (current) drug therapy
CPT/HCPCS: 36415; 71045; 80053; 83690; 83735; 83880; 84484; 85025; 85379; 93005; 96361; 96374; 99285; A9270; J1885; J7030; J8540; 93010; 99284